=== PATIENT | male | born 1960 | race Caucasian/White ===

== ENCOUNTER 2020-01-19 10:55 | Outpatient (CLI) | payer MEDICAID, SELFPAY ==
--- NOTE | 2020-01-19 11:00 | USCV_ITS ---
Rashard Lovelace Age: 59 Gender: M : 1960 Exam Date: 01/19/2020 11:21 Ordering Phys: Annabelle Ross Technologist: Liz Padilla [place] [facility] [place]: HISTORY: Lower extremity pain and swelling PROCEDURES: Bilateral duplex Venous Insufficiency study of the Deep and Superficial systems was carried out according to normal protocol with the patient in supine positon for deep system and dependent position for the superficial system. Serial compression, augmentation maneuvers, and spectral Doppler flow evaluation were performed. FINDINGS: All deep veins demonstrated compressibility without evidence of intraluminal thrombus or increased echogenicity. Spectral analysis of Doppler signals demonstrates normal response to compression maneuvers indicating patency without obstruction. Reflux determinations were made with the patient in the dependent position, the weight being on the contralateral leg. RIGHT: Reflux is demonstrated in the deep venous system at the level of the CFV and FV. Venous reflux is demonstrated in the RIGHT greater saphenous junction and below the knee with a spectral Doppler display of greater than 500 milliseconds. LEFT: No significant venous reflux in the deep system Mild venous reflux is demonstrated in the small saphenous vein proximally with a spectral Doppler display of greater than 500 milliseconds. CONCLUSIONS 1. No evidence of DVT in the above-mentioned identifiable veins. 2. Significant venous reflux greater than 500 ms was noted at the right saphenofemoral junction and at the below-knee greater saphenous vein segments. The segment of the greater saphenous vein was less than 1 cm deep from the surface. 3. Significant venous reflux of greater than 500 ms was noted at the left proximal small saphenous vein segment. This segment of the vein was found to be less than 1 cm deep from the surface. 4. Significant venous reflux of greater than 1000 ms was noted at the right common femoral and femoral veins. No significant deep venous reflux on the left side 5. The venous dimensions, depth from the surface and the reflux times are as mentioned above Dr Sury Villafana MD [facility] (Electronically Signed) Final Date: 19 January 2020 16:33 S
== END 2020-01-19 10:56 | disposition home or self-care (01) ==
LOC: US 10:57
PROVIDERS: Family Provider Internal Medicine; PCP Internal Medicine; Visit Provider Nurse Practitioner Family
DX: I73.9 Peripheral vascular disease, unspecified (principal); M79.605 Pain in left leg; M79.604 Pain in right leg; M79.89 Other specified soft tissue disorders
CPT/HCPCS: 93970

== ENCOUNTER 2021-01-04 13:21 | Outpatient (CLI) | payer MEDICAID, SELFPAY ==
--- NOTE | 2021-01-04 13:30 | USCV_ITS ---
Rashard Lovelace Age: 60 Gender: M : 1960 Exam Date: 01/04/2021 13:32 Ordering Phys: Annabelle Ross Technologist: Elif Sanz Exam Location: [facility] [place] Indication: HISTORY: PVD PROCEDURES: Bilateral duplex Venous Insufficiency study of the Deep and Superficial systems was carried out according to normal protocol with the patient in supine positon for deep system and dependent position for the superficial system. FINDINGS: There is no evidence of bilateral deep vein thrombosis. No evidence of superficial thrombosis in the bilateral saphenous system. No evidence of reflux was noted in the bilateral deep venous system. No venous reflux noted in the bilateral greater saphenous vein. No venous reflux noted in the bilateral small saphenous vein. CONCLUSIONS No evidence of DVT in the above-mentioned identifiable veins. No significant venous reflux either in the superficial or in the deep veins bilaterally Dr Sury Villafana MD [facility] (Electronically Signed) Final Date: 04 January 2021 20:30 S
== END 2021-01-04 13:22 | disposition home or self-care (01) ==
LOC: US 13:21
PROVIDERS: PCP Internal Medicine; Visit Provider Nurse Practitioner Family
DX: I73.9 Peripheral vascular disease, unspecified (principal)
CPT/HCPCS: 93970

== ENCOUNTER 2021-03-19 07:19 | Outpatient (CLI) | payer MEDICAID, SELFPAY ==
--- NOTE | 2021-03-19 07:25 | ECG_ITS ---
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 Interpretive Statements NAME OF STUDY: LEXISCAN SESTAMIBI STRESS TEST INDICATION: [CAD, ] Procedure: At the baseline, the blood pressure was 154/92mmHg with a heart rate of 84 bpm. The electrocardiogram showed normal sinus rhythm, normal axis with normal ST and T's. The Lexiscan was infused over a period of 20 seconds. A total of 0.4 mg of Lexiscan was infused. The stress phase was continued for a total of 5 minutes. Heart rate was at the end of stress phase was 94 bpm and a blood pressure of 158/88 mmHg. The EKG at the peak infusion revealed since normal sinus rhythm with no significant ST-T wave changes. Sestamibi was injected 20 seconds after the Lexiscan infusion. Blood pressure at the end of recovery phase was 154/88mmHg with a heart rate of 89 bpm. Conclusion: 1. Normal EKG response to Lexiscan infusion 2. No Lexiscan induced chest pain or cardiac arrhythmia. 3. Normal blood pressure and heart rate response. 4. Sestamibi/sestamibi perfusion scan pending; see separate report. Electronically Signed On 04-17-2021 16:48:32 CDT by Washington Ba M.D. [email or web address]/store/[id number]
--- NOTE | 2021-03-19 07:26 | NMCV_ITS ---
NM tiffanie perf SPECT r/s* [id number] Rashard Lovelace Age: 61 Gender: M : 1960 Exam Date: 03/19/2021 08:40 Ordering Phys: Washington Ba M.D ([email or web address]) Technologist: CLOVER Vallecillo Exam Location: [facility] Indications: CAD STRESS TEST [facility] IMAGE PROTOCOL Rest/Stress 1 Lexiscan Day Radiopharmaceutical Dose (mCi) Administration Site Administered by Rest: Tc-99m 10.7 IV CLOVER Shafer Sestamibi Stress:Tc-99m 32.9 IV CLOVER Nielsen Sestamibi Rest: 19-Mar-2021 60 Discovery 630 Stress: 19-Mar-2021 30 Discovery 630 0.4mg Lexiscan. Images obtained in supine and prone position. SPECT RESULTS Technical Quality: Excellent Raw Data Analysis: Normal Image Corrections: No attenuation or motion correction applied Summed Stress Score: 10 Summed Rest Score: 1 Summed Difference Score: 9 PERFUSION FINDINGS There is a large in size, severe in intensity, reversible perfusion defect in the apical lateral, mid lateral and inferolateral blanco.This is consistent with large area of ischemia in the left circumflex artery/RCA. FUNCTIONAL RESULTS (calculated via Gated SPECT) Stress Image LV EF (%): 70 Stress EDV (mL):112 TID: 1.15 Stress ESV (mL):34 FUNCTIONAL FINDINGS: There is normal left ventricular systolic function. IMPRESSIONS 1. Abnormal myocardial perfusion imaging 2. There is a large area of ischemia noted in the apical lateral, mid lateral and inferolateral blanco. 3. LV systolic function is normal Washington Ba MD (Electronically Signed) Final Date: 20 Mar 2021 11:15 S
[2021-03-19 08:01] VITALS: BMI 32.5
[2021-03-19] MEDS: regadenoson 0.4 Mg/5 ml Syringe IVP (09:18)
[2021-03-19 09:36] VITALS: BP 160/86; PULSE 93
== END 2021-03-19 07:20 | disposition home or self-care (01) ==
LOC: RAD 07:23 → CDL 07:33
PROVIDERS: PCP Internal Medicine; Visit Provider Internal Medicine
DX: I25.10 Atherosclerotic heart disease of native coronary artery without angina pectoris (principal); I25.9 Chronic ischemic heart disease, unspecified
CPT/HCPCS: 78452; 93017; A9500; J2785

== ENCOUNTER → 2021-06-18 10:06 | Outpatient (BNVA) | payer MEDICAID, SELFPAY | PROVIDERS: PCP Internal Medicine; Referring Provider Internal Medicine; Visit Provider Internal Medicine | DX: Z01.818 Encounter for other preprocedural examination (principal); R94.39 Abnormal result of other cardiovascular function study; I25.10 Atherosclerotic heart disease of native coronary artery without angina pectoris; I83.893 Varicose veins of bilateral lower extremities with other complications | CPT/HCPCS: 80048; 85025; 85610; 87635 ==

== ENCOUNTER 2021-06-20 08:52 | Day surgery (SDC) | payer MEDICAID, SELFPAY ==
[2021-06-20] VITALS (26 sets, daily range): BP systolic 134–183; BP diastolic 80–103; PULSE 62–86; RESP 14–24; TEMP 36.9; O2SAT 97–100; BMI 34.7
--- NOTE | 2021-06-20 09:04 | XACV_ITS ---
Exam Room: 1 Ht: 175 cm Wt: 107 kg BSA: 2.32 m2 Gender: Male : 1960 Any Known Allergies: Other Exam Priority: Routine Procedure(s): Procedure Description: Diagnostic procedure Procedure Description: PCI procedure Procedure Description: Drug Eluting Coronary Stent Procedure Description: PTCA Procedure Description: Miscellaneous Procedure Description: ACT Procedure Description: Coronary Angiography Diagnostic Cath Status: Elective Diagnostic Findings * Left Anterior Descending has 50% instent restenosis in the prior proximal to mid vessel stent. * Circumflex has mild luminal irregularities. A large OM branch has severe 95% stenosis. * INDICATION: Worsening angina/abnormal stress test. * Mid Right Coronary Artery has severe instent restenosis : significant 80% stenosis, SAUL: 3 flow. * Left Main has no disease. * First Obtuse Marginal Branch Segment: critical 95% stenosis, SAUL: 3 flow. * Coronary angiography shows right dominance. PCI Status: Elective PCI Indication: Other Interventional Findings * Procedure details: We engaged left main artery with a XB 3.5 guide catheter. IV heparin was administered to maintain an ACT above 250 seconds. A 0.014 run-through guidewire was used to cross the stenosis and was placed in distal OM. 2.5 x 12 mm semicompliant balloon was used to predilate the stenosis in the OM branch. This was followed by placement of 2.75x 12 mm resolute Otis drug-eluting stent. At this time final angiogram was performed that showed excellent stent expansion, SAUL-3 flow and no residual stenosis. Guidewire and guide catheter were removed. We then turned our attention to mid RCA in-stent restenosis. JR4 guide catheter was used to engage the RCA. This was followed by placement of a 0.014 run-through guidewire in distal RCA. We decided to dilate in-stent restenosis with 3.0 x 12 mm NC balloon. This improved the flow significantly. Guidewire and guide catheter were removed. Patient left the Mold Designer in a stable condition. * Mid Right Coronary Artery: 80% stenosis treated with a MDT NC EUPHORA RX 3.48T63TX BALLOON. 0% residual stenosis, SAUL: 3 flow. * First Obtuse Marginal Branch Segment: 95% stenosis treated with a AB TREK 2.50X12 RX BALLOON, and MDT R OTIS 2.75X12 PRATIK. 0% residual stenosis, SAUL: 3 flow. Conclusions 1. Severe large OM1 stenosis. Status post revascularization with PRATIK x1.. 2. Severe in-stent restenosis of mid RCA. 3. Mid Right Coronary Artery was treated with a Balloon. 4. First Obtuse Marginal Branch Segment was treated with a Balloon, and Drug Eluting Stent. Recommendations * Aspirin and Plavix for at least 1 year. * High intensity statin therapy. * Outpatient follow-up with cardiology in 4 weeks. Interventional RX Recommendation: PCI w/o planned CABG Diagnostic RX Recommendation: PCI w/o planned CABG Anticoagulation: Heparin Pressures Phase:Rest AO : 145 / 84 ( 110 ) @ 9:01:00 AM 137 / 86 ( 108 ) @ 9:04:00 AM 108 / 55 ( 84 ) @ 9:11:00 AM 150 / 86 ( 113 ) @ 9:25:00 AM 143 / 85 ( 109 ) @ 9:27:00 AM 165 / 90 ( 122 ) @ 9:36:00 AM 179 / 77 ( 115 ) @ 9:39:00 AM 128 / 77 ( 100 ) @ 9:41:00 AM 159 / 87 ( 117 ) @ 9:50:00 AM Clinical Evaluation EBL: 5mL-10mL Procedural Details Procedure Consent Obtained. Pre-Procedure Time Out. Identified patient by full name and date of as verbalized by the patient/guarantor. Does the consent match the physician's order: Yes. Accurate & Complete Informed Consent: Yes. Inpatient/Outpatient History & Physical on Chart: Yes. If H&P is completed, is and addenduem needed: Yes; If yes, is the addendum complete: N/A. Visualize and Verify Site with Patient/Guarantor: N/A. Relevant Radiology Images available: Yes. Pre-op teaching completed and patient verbalized understanding. The risks, benefits, and alternatives of sedation and/or procedure were discussed by physician. The patient agrees to continue. Procedure started. [facility] Clinical Fraility Score: 3: Managing Well. Mold Designer Indications: Suspected CAD. Chest Pain Symptom Assessment: Typical Angina Symptoms. PERRLA. Strong, equal hand wirer maintenance bilaterally. Lungs clear x 5 lobes. A 20 gauge IV was started in the left anticubital using aseptic technique. IV Fluids: 0.9% NaCl at KVO. 0 mL infused prior to quality assurance/r&d lab technician. Pre Procedural Pulses: bilateral dorsalis pedis was 1+. Pre Procedural Pulses: bilateral posterior tibial was 1+. Pre Procedural Pulses: bilateral radial was 3+. Oxygen started at 2liters/min via nasal canula. right groin was prepped with chloroprep then draped in the usual sterile fashion. right radial was prepped with chloroprep then draped in the usual sterile fashion. Physician notified. Vital chart was stopped. Baseline sample Acquired. HR: 78 BPM. Physician arrived. Physician scrubbed in. Immediate Pre-Procedure Time Out. Correct Patient: Yes; Correct Procedure: Yes; Correct Site: Yes; Correct Patient Position: Yes; Correct Supplies: Yes; Dried Flammable Prep: Yes; Blood Products Available: N/A;. Lidocaine 1% infiltrated to the right radial. Arterial access obtained. A 5 mozambican TIG catheter in over wire. Multiple views taken of left coronary artery. Catheter redirected to the RCA. Catheter removed over the exchange wire. A 5 mozambican JR4 catheter in over wire. Multiple views taken of right coronary artery. Catheter removed over the exchange wire. 6 mozambican XB 3.5 guide catheter was inserted over the wire. Inventory is Standard Exchange J-Tip Guidewire .035 260cm. Guide catheter out. 6 mozambican XB 3 guide catheter was inserted over the wire. Runthrough guidewire was advanced through the guide catheter to lesion in the OM. Inflation number : 1 A AB TREK 2.50X12 RX BALLOON was prepped and advanced across the 1st Ob Magdalena , then inflated to 12 SHAMAR for 0:17 seconds. Balloon out over the wire. 2.75x12 Otis inserted and advanced OTW. Stent balloon out over wire. Inflation number: 2 The AB TREK 2.50X12 RX BALLOON was reinflated across the 1st Ob Magdalena, to 12 SHAMAR for 0:18 seconds. Balloon out. Inflation Number : 3 A MDT R OTIS 2.75X12 PRATIK -Lot Number# _[id number] Exp:03/07/2024 was prepped and advanced across the 1st Ob Magdalena. The stent was deployed at 14 SHAMAR for 0:30 seconds. Stent balloon out over wire. Results checked. ACT drawn. Results 217 seconds. Therapeutic limits - pre-heparin administration 90-150 seconds and monitoring heparin during a vascular procedure >250 seconds. Wire out. Guide catheter out. 6 mozambican JR 4 guide catheter was inserted over the wire. Runthrough guidewire was advanced through the guide catheter to lesion in the mid RCA. Inflation number : 1 A MDT NC EUPHORA RX 3.99N97LU BALLOON was prepped and advanced across the Mid RCA , then inflated to 12 SHAMAR for 0:17 seconds. Inflation number: 2 The MDT NC EUPHORA RX 3.23K77PT BALLOON was reinflated across the Mid RCA, to 12 SHAMAR for 0:17 seconds. Balloon out. Results checked. Wire out. Guide catheter out. TR band placed. Hemostasis obtained. A TR Band was successful obtaining hemostatsis at the Right Radial artery insertion site. Post Procedure: Pulses reassessed and unchanged. PERRLA. Strong, equal hand wirer maintenance bilaterally. No VTE prophylaxis required. Vital chart was stopped. Medication's Wasted: Nitro = 49.4 mg. Medication's Wasted: Lidocaine 1% = 17 mL. Total IV fluids: 94 mL. Contrast type used: Omnipaque 300 mgI/mL, 500 mL bottle. PCI Indication: CAD (without ischemic symptoms). Post-op diagnosis: CAD. Complications: None. Estimated blood loss: 5mL-10mL. Procedure completed. Patient transferred by wheelchair to CPRU. Access Site Site: Right Radial artery Sheath Size: 6 Fr Hemostasis Method: TR Band Hemostasis Success: Successful Procedure Medications Start: 9:53 AM Stop: 9:53 AM Medication: Versed Amount: 1 mg Route: I.V. Start: 9:53 AM Stop: 9:53 AM Medication: Fentanyl Amount: 50 mcg Start: 9:55 AM Stop: 9:55 AM Medication: Versed Amount: 1 mg Route: I.V. Start: 9:57 AM Stop: 9:57 AM Medication: Fentanyl Amount: 50 mcg Start: 9:59 AM Stop: 9:59 AM Medication: Nitrogylcerin Amount: 200 mcg Route: I.A. Start: 10:01 AM Stop: 10:01 AM Medication: Heparin Amount: 5000 units Route: I.V. Start: 10:11 AM Stop: 10:11 AM Medication: Heparin Amount: 5000 units Route: I.V. Start: 10:27 AM Stop: 10:27 AM Medication: Versed 1 mg and Fentanyl 25 mcg Amount: 1 Route: I.V. Start: 10:45 AM Stop: 10:45 AM Medication: Heparin Amount: 3000 units Route: I.V. Start: 10:50 AM Stop: 10:50 AM Medication: Versed Amount: 1 mg Route: I.V. Start: 10:50 AM Stop: 10:50 AM Medication: Nitrogylcerin Amount: 200 mcg Route: I.A. Start: 10:55 AM Stop: 10:55 AM Medication: Fentanyl Amount: 25 mcg Route: I.V. Start: 10:57 AM Stop: 10:57 AM Medication: Plavix Amount: 600 mg Route: P.O. Start: 10:57 AM Stop: 10:57 AM Medication: Aspirin Amount: 325 mg Route: P.O. I, the attending physician, have reviewed and verified all procedure medications. Yes, all medications given per verbal order History/Risk Factors Hypertension: Yes Dyslipidemia: Yes Peripheral Arterial Disease (PAD): Yes Myocardial Infarction (TX): No Obesity: No Renal Disease: No Prior Interventions PCI: Yes CABG: No Valve Surgery: No Date of PCI: 05/16/2011 Report Signatures Finalized by Washington Ba MD on 07/04/2021 05:09 PM
[2021-06-20] MEDS: diphenhydrAMINE 50 mg Capsule PO (09:28)
--- NOTE | 2021-06-20 09:47 | P.HP_ITS ---
Same Day Surgery H&P Indication for Procedure/HPI DATE OF PROCEDURE: June 20, 2021 CHIEF COMPLAINT/INDICATIONFOR SURGICAL PROCEDURE: Worsening angina/abnormal stress test PREOP DIAGNOSIS: Worsening angina/abnormal stress test PLANNED PROCEDRUE: Operation Date: 06/20/21 10:00 Proposed Procedures p left Cardiac Catheterization 96218 r94.39(Left) - Washington Ba M.D Possible percutaneous coronary intervention 60-year-old man with past medical history of coronary artery disease with multiple stents to the LAD and RCA, hypertension, dyslipidemia, chronic pain specially both knees who has been having worsening chest pain for last several months. Nuclear stress test was abnormal with ischemia noted. ROS CONSTITUTIONAL: No fever chills weight loss or gain or night sweats. [] HEENT: Normocephalic, atraumatic.[] RESPIRATORY: No cough, sputum, hemoptysis or wheezing.[] CARDIOVASCULAR: On and off chest pain and shortness of breath,No PND, orthopnea, lower extremity edema, presyncope or syncope. [] GI: no nausea vomiting diarrhea. [] MEDICAL LABORATORY ASSISTANT: No numbness, tingling, weakness or loss of function in any part of the body. [] MUSCULOSKELETAL: No knee or joint pain or rashes. [] Medications/Allergies* Home Medications Medication Instructions Recorded Confirmed Type nitroglycerin 0.4 mg sublingual 0.4 mg SUBLINGUAL Q5M PRN 12/05/19 06/19/21 History tablet temazepam 30 mg PO .AT BEDTIME 06/19/21 06/20/21 History Allergies/Adverse Reactions Allergy/AdvReac Type Severity Reaction Status Date / Time Qhnkicy-Lha-Kde Reductase Allergy Unknown Verified 06/11/21 15:19 Inhibitor Current Medications: Generic Name Dose Route Start Last Admin Trade Name Freq PRN Reason Stop Dose Admin Sodium Chloride 1,000 mls @ 50 mls/hr 06/20/21 09:04 06/20/21 09:28 Sodium Chloride 0.9% IV 06/21/21 05:03 Not Given .Q20H ONE Pertinent History/Comorbid Conditions* Medical History (Updated 03/12/20 @ 15:01 by Jhon Padron MD) Beta-dominic intolerance Bilateral tennis elbow Chronic pain syndrome Peripheral vascular disease Post-traumatic osteoarthritis of knees, bilateral Presence of stent in LAD coronary artery 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 Stent to mid right SFA in 2016 Varicose veins of bilateral lower extremities with other complications Surgical History (Updated 01/11/20 @ 13:18 by MARIBETH Desai) S/P right coronary artery (RCA) stent placement Family History (Updated 01/11/20 @ 13:07 by Ritu Darling RN) Diabetes Brother Sister Mother CAD (coronary artery disease) Father Clotting disorder Sister Dementia Sister Hyperlipidemia Father Brother Cancer Father Brother Hypertension Father Brother Sister Mother Denies family history of Psychiatric illness Chronic kidney disease (CKD) Suicide Anesthesia complication Bleeding disorder Family history of premature coronary artery disease Lung disease Stroke Social History Smoking and tobacco status: current every day smoker smokeless tobacco Smokeless tobacco user: chewing tobacco Second hand smoke exposure: No Alcohol intake: never Pertinent Exam Findings alert, oriented x 3, clear to auscultation bilaterally and regular rate & rhythm Conscious Sedation Assessment PATIENT ASSESSED PRIOR TO SEDATION, WITH NO CHANGE NOTED: Yes AIRWAY EVAL/ANESTHESIA PLAN: normal airway, see other exam findings, ASA III, Monitored Anesthesia, Local Anesthesia, Risks, benefits & alternatives of sedation and/or procedure discussed and Patient agrees to continue as planned Recommendations Surgery/Procedure today (Left heart cath with possible percutaneous coronary intervention) Coding Level of Care Code Acute Yield Clerk for Emy Ramírez
[2021-06-20] MEDS: aspirin 325 mg Tablet PO (11:22)
--- NOTE | 2021-06-20 11:23 | PC.NURSE ---
recovery received pt from prestressed concrete laborer [facility]. pt tired but able to rouse and transfer to the bed. pt able to follow direction. nurse will continue to educate pt with restrictions to right wrist. tr band in place no bleeding or bruising noted. distal pulse palpable. pt placed on vitals monitor and will monitor per protocol.
--- NOTE | 2021-06-20 15:13 | PC.NURSE ---
TR Band deflation complete. No swelling or bleeding noted.
--- NOTE | 2021-06-20 16:11 | ECG_ITS ---
[facility] Test Date: 2021-06-20 Pat Name: Rashard Lovelace Department: Room: Gender: Male Etl Analyst Developer: : 1960 Requested By: Washington Ba Order Number: [id number] Reading MD: ELTON VITALE Measurements Intervals [place] Rate: 81 P: 65 RI: 151 QRS: 54 QRSD: 87 T: 68 QT: 370 QTc: 430 Interpretive Statements SINUS RHYTHM Compared to ECG 03/05/2016 15:21:38 No significant changes Electronically Signed On 06-20-2021 21:22:01 CDT by ELTON VITALE [id number]
--- NOTE | 2021-06-20 16:58 | PC.NURSE ---
The patient ambulated himself around the department. No complaints or problems noted.
--- NOTE | 2021-06-20 17:13 | PC.NURSE ---
Pharmacy delivered the patient's Plavix prescription.
--- NOTE | 2021-06-20 17:19 | SUR.PHASEII ---
IV fluids discontinued. Total NS infused 554 ml.
--- NOTE | 2021-06-20 21:30 | P.DS_ITS ---
Discharge Providers Date of Admission: 06/20/2021 Date of Discharge: June 20, 2021 Attending Provider at Admission: Washington Ba MD Attending Provider at Discharge: Washington Ba M.D Primary Care Provider: Daniel Narayanan MD Reason for Visit Reason for Visit: [facility] Brief History: 60-year-old man with past medical history of coronary artery disease with multiple stents to the LAD and RCA, hypertension, dyslipidemia, chronic pain specially both knees who has been having worsening chest pain for last several months. Nuclear stress test was abnormal for which he was scheduled to undergo coronary angiogram Hospital Course Hospital Course 60-year-old man with past medical history of coronary artery disease with multiple stents to the LAD and RCA, hypertension, dyslipidemia, chronic pain specially both knees who has been having worsening chest pain for last several months. Nuclear stress test was abnormal for which he was scheduled to undergo coronary angiogram . Coronary angiogram demonstrated severe 95% stenosis of a large OM branch. He also had significant in-stent restenosis of RCA. He u nderwent PCI with PRATIK times one of the OM and balloon angioplasty of the RCA in- stent restenosis. Patient was discharged in a stable condition. Physical Exam Narrative: EXAM NARRATIVE: GENERAL: Patient is alert, awake and oriented x3. [] NECK: No jugular vein distension. [] HEENT: No cyanosis. No icterus. No pallor. [] HEART: Regular S1 and S2. No murmur, rub or gallop. [] LUNGS: Clear to auscultate bilaterally. [] ABDOMEN: Soft, nontender and nondistended. Positive bowel sounds. No guarding, rebound or tenderness. [] CENTRAL NERVOUS SYSTEM: Grossly nonfocal. [] EXTREMITIES: Lower extremities with no edema bilaterally. Pulses palpable in the lower extremities, both dorsalis pedis and posterior tibial. [] Discharge Data Data Completed and Pending: Pending at discharge Category Date Time Status CONDENSER CLEANER request for service Routin e Exams 06/20/21 09:04 Taken Vitals: Last Vital Signs Temp 98.4 F 06/20/21 09:02 Pulse 70 06/20/21 17:30 Resp 20 H 06/20/21 17:30 BP 140/80 06/20/21 17:30 Pulse Ox 98 06/20/21 17:30 Discharge Plan Discharge Patient Disposition: Home Condition: Stable Prescriptions: New Plavix 75 mg tablet 75 mg PO DAILY Qty: 90 RF: 3 Continued morphine [MS Contin] 100 mg tablet extended release 100 mg PO Q12H 30 Days Qty: 60 RF: 0 nitroglycerin [Nitrostat] 0.4 mg tablet, sublingual 0.4 mg SUBLINGUAL Q5M PRN (Reason: Pain) RF: 0 aspirin [Adult Aspirin Regimen] 81 mg tablet,delayed release (DR/EC) 81 mg PO DAILY Qty: 90 RF: 3 Movantik 25 mg tablet 25 mg PO QAM Qty: 30 RF: 6 lisinopril 40 mg tablet 40 mg PO QDAY Qty: 30 RF: 3 amlodipine 10 mg tablet 10 mg PO QDAY Qty: 30 RF: 6 ezetimibe 10 mg tablet 10 mg PO QDAY Qty: 30 RF: 3 No Action temazepam 30 mg capsule 30 mg PO .AT BEDTIME Qty: 30 RF: 3 Discharge Orders: Discharge Order (Routine); Ordered 06/20/21 Ordered By: Washington Ba Referrals: Washington Ba M.D [Physician] - 07/17/21 3:15 pm (Please arrive 15 minutes early.) Annabelle Ross FNP [Nurse Practitioner] - 06/26/21 8:30 am (Please arrive 15 minutes early.) Discharge Diet: Cardiac Discharge Activity: Increase activity as tolerated Patient Instructions: Left Heart Catheterization (DC), Coronary Angioplasty (DC) Activity Restrictions/Additional Instructions: Please do not lift more than 5 pounds of weight for the next 5 days Discharge Attestations Time Spent in Discharge Care*: less than 30 min Quality Metrics Clinical Quality Measures During this hospital stay, did patient experience: None Coding Level of Care Code Acute Chg FW DC note
== END 2021-06-20 17:30 | disposition home or self-care (01) ==
PROVIDERS: PCP Internal Medicine; Visit Provider Internal Medicine
DX: I25.10 Atherosclerotic heart disease of native coronary artery without angina pectoris (principal); R94.39 Abnormal result of other cardiovascular function study; Z95.5 Presence of coronary angioplasty implant and graft; Z82.49 Family history of ischemic heart disease and other diseases of the circulatory system; Z83.3 Family history of diabetes mellitus; F17.220 Nicotine dependence, chewing tobacco, uncomplicated
CPT/HCPCS: 36415; 85347; 92921; 93005; 93454; C1725; C1769; C1874; C1887; C1894; C9600; J1644; J2250; J3010; J3490; J7030; Q0163; Q9967

== ENCOUNTER 2021-10-10 12:26 | Outpatient (CLI) | payer MEDICAID, SELFPAY ==
--- NOTE | 2021-10-10 12:45 | USCV_ITS ---
Greyhien Rashard Age: 61 Gender: M : 1960 Exam Date: 10/10/2021 13:02 Ordering Phys: Washington Ba M.D ([email or web address]) Technologist: Exam Location: [facility] [place] Indication: PAD HX OF STENT IN RT LEG Risk Factors: None Previous Vascular Surgery: STENTS RIGHT LEFT BP: 140.0 / 80.00 BP: 140.0/ 80.00 0 0 Waveform Velocity (cm/s) Velocity (cm/s) Waveform Biphasic 88.3 Iliac Prox 84.2 Biphasic Biphasic 89.5 Iliac Mid 87.1 Monophasic Biphasic 93.9 Iliac Distal 64.3 Monophasic Biphasic 96.2 NEONATAL SPECIALIST 67.2 Monophasic Biphasic 70.5 SFA Prox 47.3 Monophasic Biphasic SFA Mid Monophasic 66.0 54.4 Biphasic 69.3 SFA Dist 57.7 Monophasic Monophasic 47.3 POP 29.5 Monophasic Monophasic 58.7 OIL RAG WASHER 52.3 Monophasic Monophasic 54.0 DPA 37.5 Monophasic 0.8 MORRIS 0.7 FINDINGS Normal resting ABIs bilaterally of 0.8 on the right side and 0.7 on the left side CONCLUSIONS 1. Features of mild peripheral artery disease on the right side and mild to moderate peripheral artery disease on the left side. 2. Mild to moderate diffuse plaques were noted in the iliac and femoral arteries bilaterally Dr Sury Villafana MD [facility] (Electronically Signed) Final Date: 11 October 2021 13:47 S
== END 2021-10-10 12:27 | disposition home or self-care (01) ==
LOC: RAD 12:28
PROVIDERS: PCP Internal Medicine; Visit Provider Internal Medicine
DX: M79.606 Pain in leg, unspecified (principal)
CPT/HCPCS: 93925

== ENCOUNTER → 2022-07-11 10:57 | Outpatient (BNVA) | payer MEDICAID, SELFPAY | PROVIDERS: PCP Internal Medicine; Visit Provider Internal Medicine Cardiovascular Disease | DX: I83.893 Varicose veins of bilateral lower extremities with other complications (principal); Z95.5 Presence of coronary angioplasty implant and graft; Z78.9 Other specified health status; I25.10 Atherosclerotic heart disease of native coronary artery without angina pectoris; E78.5 Hyperlipidemia, unspecified; I10 Essential (primary) hypertension; I73.9 Peripheral vascular disease, unspecified; G89.4 Chronic pain syndrome; Z87.891 Personal history of nicotine dependence | CPT/HCPCS: 99213 ==

== ENCOUNTER → 2022-12-10 11:05 | Outpatient (BNVA) | payer MEDICAID, SELFPAY | PROVIDERS: PCP Internal Medicine; Visit Provider Nurse Practitioner Family | DX: I25.10 Atherosclerotic heart disease of native coronary artery without angina pectoris (principal); I73.9 Peripheral vascular disease, unspecified; I10 Essential (primary) hypertension; Z95.5 Presence of coronary angioplasty implant and graft; Z87.891 Personal history of nicotine dependence | CPT/HCPCS: 99214 ==

== ENCOUNTER 2023-01-06 10:34 | Outpatient (CLI) | payer MEDICAID, SELFPAY ==
--- NOTE | 2023-01-06 10:15 | USCV_ITS ---
Rashard Lovelace Age: 62 Gender: M : 1960 Exam Date: 01/06/2023 10:54 Ordering Phys: Annabelle Ross Technologist: CT Exam Location: [facility] [place] Indication: chest pain BP: 140 / 82 HR: 73 Rhythm: Sinus Technical Quality: Adequate MEASUREMENTS (Male / Female) Normal Values 2D ECHO LVOT Diameter 2.0 cm LV Ejection Fraction MOD 2C 64.9 % LV Ejection Fraction 2C AL 65.2 % LA Diameter 3.4 cm LA Width 3.0 cm LA Height 3.8 cm RA Width 3.4 cm RA Height 4.1 cm Aorta at Sinotubular Diameter 2.6 cm IVC Diameter 1.5 cm M-MODE Aortic Annulus Diameter 3.0 cm LA Ao Ratio MM 1.1 MV E Point Septal Separation 0.3 cm DOPPLER AV Peak Velocity 130.0 cm/s LVOT Peak Velocity 138.0 cm/s AV Area Cont Eq vti 3.0 cm squared AV Area Cont Eq pk 3.4 cm squared MV Peak Velocity 92.0 cm/s MV Area PHT 2.8 cm squared Mitral E to A Ratio 0.7 MV E' Velocity 37.5 cm/s Mitral E to MV E' Ratio 6.8 Mitral E to LV E' Lateral Ratio 5.8 Mitral E to LV E' Septal Ratio 8.2 TR Peak Velocity 148.5 cm/s TR Peak Gradient 8.8 mmHg TR Mean Velocity 122.6 cm/s TR Mean Gradient 6.2 mmHg TR Velocity Time Integral 38.8 cm TV Peak E Velocity 45.0 cm/s Right Atrial Pressure 3.0 mmHg Pulmonary Artery Systolic Pressu 11.8 mmHg PV Peak Velocity 137.0 cm/s RV Acceleration Time 0.1 s RV Ejection Time 0.3 s RV AcT/ET 0.4 FINDINGS Left Ventricle Left ventricle is normal in size. LV systolic function is normal with EF of 55 to 60%. No regional wall motion abnormalities are seen. Grade 1 diastolic dysfunction. Right Ventricle Normal in size and function Right Atrium Normal in size Left Atrium Normal in size Mitral Valve Structurally normal mitral valve. Mild mitral regurgitation. Aortic Valve Structurally normal aortic valve. No significant stenosis or regurgitation. Tricuspid Valve Mild tricuspid regurgitation. Pulmonary artery systolic pressure is normal. Pulmonic Valve Not well visualized. Trace pulmonic regurgitation. Pericardium Normal Aorta Normal in size IVC Appears to be normal CONCLUSIONS LV systolic function is normal with EF of 55-60% Grade 1 diastolic dysfunction Mild mitral regurgitation Mild tricuspid regurgitation Trace pulmonic regurgitation. No comparison studies are available Washington Ba MD (Electronically Signed) Final Date: 10 January 2023 20:11 S
== END 2023-01-06 10:35 | disposition home or self-care (01) ==
PROVIDERS: PCP Internal Medicine; Visit Provider Nurse Practitioner Family
DX: I08.3 Combined rheumatic disorders of mitral, aortic and tricuspid valves (principal); I25.10 Atherosclerotic heart disease of native coronary artery without angina pectoris; R53.83 Other fatigue; Z95.5 Presence of coronary angioplasty implant and graft
CPT/HCPCS: 93306

== ENCOUNTER 2023-01-15 11:57 | Outpatient (CLI) | payer MEDICARE, MEDICAID, SELFPAY ==
--- NOTE | 2023-01-15 12:00 | CT_ITS ---
WS: [id number] CT ANGIOGRAPHY OF THE ABDOMINAL AORTA WITH RUNOFF TO THE ANKLES HISTORY: claudication TECHNIQUE: Arterial injection is performed during imaging to evaluate the aorta and runoff vessels to the ankles. MIP and volume rendering imaging has also been performed. All images are reviewed. All C T scans at [facility] use at least one of these dose optimization techniques: automated exposu re control; mA and/or kV adjustment per patient size (includes targeted exams where dose is matched t o clinical indication); or iterative reconstruction. Contrast: Omnipaque 350; 100 mL IV. DLP: 801.40 mGy.cm COMPARISON: No similar studies. Lung bases are clear. Normal size heart. Small hiatal hernia. Abdominal aorta: Mild atherosclerotic plaque. No aneurysm or high-grade stenosis. Celiac axis and SMA are patent. Normal renal arteries. CAMILA is patent. RIGHT lower extremity arterial system: Scattered plaque in the common, internal and external iliac ar teries. 50% stenosis involving the distal external iliac artery. Deep profunda and SFA remain well-op acified. Continued scattered plaque throughout the SFA. There is a short stent in the mid SFA. The amanda men is opacified. Distal SFA through Madan's canal is patent with no high-grade stenosis. Anterior, posterior tibial and peroneal arteries are opacified to the ankle. Very small caliber peroneal artery . LEFT lower extremity arterial system: Scattered plaque with no high-grade stenosis or occlusion commo n internal iliac proximal LEFT SFA stenosis 70%. .Internal and external iliac arteries are patent. 70% stenosis proximal LEFT SFA. Deep profunda is in tact. Additional very high-grade stenosis greater than 70% with calcification in the mid to distal SF A. There may be a complete occlusion. Reconstitution proximal to Madan's canal. Patent popliteal art phil. Very small caliber anterior tibial artery. Diminutive anterior tibial artery may be occluded dis tally. The peroneal and posterior tibial arteries are barely opacified. Mildly distended gallbladder. Early arterial enhancement abdomen, spleen, pancreas, adrenals and kidn eys demonstrates no acute abnormality. No renal obstruction. No GI tract obstruction. No adenopathy o r ascites. Normal appendix. Bilateral ACL repairs. CT/CT angio abd aorta runof [id number] IMPRESSION: 1. No abdominal aortic aneurysm. 2. 50% stenosis distal RIGHT external iliac artery. 3. Short arterial stent in the mid RIGHT SFA is patent. 4. Small caliber RIGHT peroneal artery to the ankle. 5. High-grade stenosis versus complete occlusion mid to distal LEFT SFA. 6. Very small caliber LEFT anterior tibial artery with limited runoff to the a nkle.
[2023-01-15] MEDS: iohexol 350 mg/mL 500 mL Btl (per mL) IV (12:14)
[2023-01-15 12:37] LABS: Blood Urea Nitrogen 12 mg/dL (8-23); Glomerular Filtration Rate 55.6 mL/min (90-130)
== END 2023-01-15 11:58 | disposition home or self-care (01) ==
LOC: RAD 11:59
PROVIDERS: PCP Internal Medicine; Visit Provider Nurse Practitioner Family
DX: I73.9 Peripheral vascular disease, unspecified (principal); I70.8 Atherosclerosis of other arteries; Z95.820 Peripheral vascular angioplasty status with implants and grafts
CPT/HCPCS: 75635; 82565; 84520; Q9967

== ENCOUNTER 2023-02-05 09:13 | Observation (INO) | payer MEDICARE, MEDICAID, SELFPAY ==
[2023-02-05] VITALS (64 sets, daily range): BP systolic 124–156; BP diastolic 81–108; PULSE 59–90; RESP 10–29; TEMP 36.7; O2SAT 82–100; BMI 34.5
--- NOTE | 2023-02-05 06:00 | XACV_ITS ---
Ht: 175 cm Wt: 106 kg BSA: 2.31 m2 Any Known Allergies: Other Gender: Male : 1960 Exam Type: Invasive Peripheral Vascular Procedure(s): Procedure Description: Peripheral Cath Diagnostic Procedure Procedure Description: Abdominal aortic angiography Procedure Description: Lower extremities' angiography Procedure Description: Peripheral vascular Intervention Procedure Description: PV Balloon Procedure Description: PV Atherectomy Exam Priority: Routine Abdominal Diagnostic Findings Distal abdominal aorta: Patent. Lower Extremity Diagnostic Findings Indication: Severe lifestyle limiting claudication. Left lower extremity findings: Left common iliac artery: Patent. Left external iliac artery: Patent. Left common femoral artery: Patent. Left SFA: In mid segment has severe 90% stenosis. It is heavily calcified vessel. Left popliteal artery: Patent. Left anterior tibial artery: Occluded. Left TP segment: Patent. Left posterior tibial artery: Patent. Left peroneal artery: Patent.. Right lower extremity findings: Right common iliac artery: Patent. Right external iliac artery: Patent. Right common femoral artery: Patent. Right SFA: Has moderate to severe in-stent restenosis with 60% stenosis. Right popliteal artery: Patent Right anterior tibial artery: Patent Right TP segment: Patent. Right posterior tibial artery: Patent. Right peroneal artery: Patent.. Left Mid-longitudinal Superficial Femoral Artery: 90% stenosis. Lower Extremity Interventional Findings Procedure detail: Short 6 Lao sheath was switched to 45 cm sheath that was placed up and over into left external iliac artery. Using seeker support catheter and Glidewire we crossed severe stenosis of mid SFA. Through seeker catheter, we switched to a Glidewire to Viper wire. Multiple runs of orbital arthrectomy were performed. This was followed by balloon angioplasty with 6.0 x 100 mm drug-coated balloon. In the midsegment there was still residual stenosis. We used a 7.0 x 40 mm balloon for balloon angioplasty. At this time final angiogram was performed that showed excellent vessel expansion and brisk flow. Long sheath was switched back to short sheath and patient left the Underwear Trimmer in a stable condition. Left Mid-longitudinal Superficial Femoral Artery: 90% stenosis treated with 6.0x100 Lutonix DCB and AB ARMADA 35 OTW [id number]. Conclusions Severe mid left SFA stenosis status post revascularization with orbital arthrectomy and balloon angioplasty. Left Mid-longitudinal Superficial Femoral Artery was treated with two Balloon. Recommendations Aggressive risk factor modification. Dual antiplatelet therapy with aspirin and Plavix for at least 3 to 6 months. Outpatient cardiology follow up in 4 weeks. Hemodynamic Data Phase:Rest AO : 156.0 / 71.0 ( 100.0 ) @ 8:41:00 AM 133.0 / 65.0 ( 91.0 ) @ 8:49:00 AM 129.0 / 38.0 ( 73.0 ) @ 9:08:00 AM 169.0 / 78.0 ( 116.0 ) @ 9:21:00 AM Access Site Site: Right Femoral artery Sheath Size: 6 Fr Hemost... Method: Suture Hemost... Success: Successful Procedure Details Findings Procedure Consent Obtained. Admit Source: Out Patient. Pre-Procedure Time Out. Identified patient by full name and date of as verbalized by the patient/guarantor. Does the consent match the physician's order: Yes. Accurate & Complete Informed Consent: Yes. Inpatient/Outpatient History & Physical on Chart: Yes. If H&P is completed, is and addenduem needed: No; If yes, is the addendum complete: N/A. Visualize and Verify Site with Patient/Guarantor: N/A. Relevant Radiology Images available: Yes. The risks, benefits, and alternatives of sedation and/or procedure were discussed by physician. The patient agrees to continue. Procedure started. Correct patient, site and procedure confirmed by cath team. PERRLA. Strong, equal hand machine shop worker bilaterally. Lungs clear x 5 lobes. Current diagnosis: Abnormal CTA. IV Site on Arrival: 20 gauge in the right anticubital. IV Fluids: 0.9% NaCl at KVO. 250 mL infused prior to labor arbitrator hearing office. Pre Procedural Pulses: bilateral dorsalis pedis was Doppled. Pre Procedural Pulses: left dorsalis pedis was 2+. Pre Procedural Pulses: right posterior tibial was 1+. Oxygen started at 2liters/min via nasal canula. bilateral groins was prepped with chloroprep then draped in the usual sterile fashion. Physician notified. Baseline sample Acquired. HR: 77 BPM. Physician arrived. Physician scrubbed in. Time out performed with cath team. Lidocaine 1% infiltrated to the right groin. Arterial access obtained with micropuncture set. A 5FrFr UF catheter in over wire. Abdominal aortogram performed in AP @ 10 mL/sec for a total of 30 mL. Glidewire inserted. Catheter removed over the glide wire. Exchanged short sheath for 45 cm flexer. Seeker catheter inserted over the wire. Glidewire removed. DSA performed below the knee. Viperwire inserted. Seeker removed over the viper wire. Side port of sheath attached to Normal Saline flush at KVO to maintain patency. Athrectomy of left SFA performed. Cathryn removed over viper wire. Seeker catheter inserted over the viperwire. Viperwire removed. Balloon inserted over the wire to the superficial femoral. Inflation number : 1 A 6.0x100 Lutonix DCB was prepped and advanced across the Mid Superficial Femoral, Left , then inflated to 8 SHAMAR for 2:00 seconds. Balloon out. Results checked. Balloon and wire inserted to the superficial femoral. Inflation number : 2 A AB ARMADA 35 OTW [id number] was prepped and advanced across the Mid Superficial Femoral, Left , then inflated to 6 SHAMAR for 1:01 seconds. Inflation number: 3 The AB ARMADA 35 OTW [id number] was reinflated across the Mid Superficial Femoral, Left, to 6 SHAMAR for 0:59 seconds. Balloon out. Results checked. Long sheath exchanged for 6Fr short sheath. Sheath injected in Right common femoral artery and runoff performed. Blood drawn for aPTT. Sent to lab to perform. Sheath(s) sutured into position with 2-0 silk and sterile 4x4's and Op-site applied over the site. No oozing or signs and symptoms of hematoma noted. A Suture was successful obtaining hemostatsis at the Right Femoral artery insertion site. Arterial sheath flushed and connected to tranducer and pressure bag with heparinized saline. Post Procedure: Pulses reassessed and unchanged. PERRLA. Strong, equal hand machine shop worker bilaterally. No VTE prophylaxis required. Medication's Wasted: Nitro = 49 mg. Medication's Wasted: Heparin = 4000 units. Total IV fluids: 91 mL. Post-op diagnosis: severe left SFA stenosis. post athrectomy and balloon angioplasty. Complications: none. Estimated blood loss: 5mL-10mL. Responsiveness - Normal response to verbal stimuli; alert and oriented, PERRLA. Airway - Unaffected, no intervention required; spontaneous ventilation. Circulation: W/N/L, pulses unchanged. Nausea/Vomiting: No. Procedure completed. Patient transferred by bed to ICU. Vital chart was stopped. Procedure Medications Start: 7:32 AM Stop: 7:32 AM Medication: Versed Amount: 1 mg Route: I.V. Start: 7:32 AM Stop: 7:32 AM Medication: Fentanyl Amount: 50 mcg Route: I.V. Start: 7:36 AM Stop: 7:36 AM Medication: Versed Amount: 1 mg Route: I.V. Start: 7:58 AM Stop: 7:58 AM Medication: Heparin Amount: 6000 units Route: I.V. Start: 7:59 AM Stop: 7:59 AM Medication: Versed Amount: 1 mg Route: I.V. Start: 8:00 AM Stop: 8:00 AM Medication: Fentanyl Amount: 50 mcg Route: I.V. Start: 8:09 AM Stop: 8:09 AM Medication: Heparin Amount: 1000 units Route: I.V. Start: 8:17 AM Stop: 8:17 AM Medication: Versed Amount: 1 mg Route: I.V. Start: 8:25 AM Stop: 8:25 AM Medication: Plavix Amount: 300 mg Route: P.O. I, the attending physician, have reviewed and verified all procedure medications. Yes, all medications given per verbal order History/Risk Factors Hypertension: Yes Dyslipidemia: Yes Peripheral Arterial Disease (PAD): Yes Obesity: No Tobacco Use: Former Prior Interventions PCI: Yes CABG: No Valve Surgery: No Report Signatures Finalized by Washington Ba MD on 02/08/2023 10:13 AM
[2023-02-05] MEDS: diphenhydrAMINE 50 mg Capsule PO (06:15)
[2023-02-05 06:28] LABS: Basophils # 0.1 10^3/uL (0.0-0.1); Basophils % 1.2 %; Eosinophils # 0.2 10^3/uL (0.0-0.8); Eosinophils % 3.6 %; Hematocrit 47.4 % (42.0-52.0); Hemoglobin 15.8 g/dL (11.7-16.6); Lymphocytes # 1.8 10^3/uL (0.8-4.8); Lymphocytes % 27.3 %; Mean Corpuscular HGB Conc 33.3 g/dL (30.0-36.0); Mean Corpuscular Hemoglobin 29.4 pg (28.0-34.0); Mean Corpuscular Volume 88.1 fl (80-94); Mean Platelet Volume 10.3 fL (7.4-10.4); Monocytes # 0.4 10^3/uL (0.2-0.9); Monocytes % 6.9 %; Neutrophils # 3.89 10^3/uL (1.8-7.7); Neutrophils % 60.7 %; Nucleated Red Blood Cells % 0 %; Platelet Count 193 10^3/cmm (130-400); Red Blood Count 5.38 10^6/uL (4.1-5.3); Red Cell Distribution Width 13.2 % (12.1-15.1); White Blood Count 6.4 10^3/uL (4.0-10.0)
[2023-02-05 06:39] LABS: Anion Gap 12.9 (5-19); Blood Urea Nitrogen 13 mg/dL (8-23); Calcium 8.7 mg/dL (8.5-10.5); Carbon Dioxide 24 mmol/L (22-29); Chloride 101 mmol/L (98-107); Glomerular Filtration Rate 55.4 mL/min (90-130); Glucose 94 mg/dL (65-115); Osmolality Calculated 278 mOsm/kg (285-295); Potassium 3.9 mmol/L (3.5-5.1); Sodium 134 mmol/L (136-145)
--- NOTE | 2023-02-05 06:47 | PC.NURSE ---
Dr. Ba notified of creatinine of 1.3. Telephone orders received to give 250ml NS bolus and then resume NS at 100ml/hr.
--- NOTE | 2023-02-05 07:22 | W.PM.OPSFHP ---
Same Day Surgery H&P Indication for Procedure/HPI DATE OF PROCEDURE: February 05, 2023 CHIEF COMPLAINT/INDICATIONFOR SURGICAL PROCEDURE: Severe lifestyle limiting claudication PREOP DIAGNOSIS: Severe lifestyle limiting claudication PLANNED PROCEDURE: Operation Date: 02/05/23 07:00 Proposed Procedures p Peripheral Angiogram 90283,R93.89,I73.9(Not Applicable) - Washington Ba M.D Possible percutaneous coronary intervention 63-year-old man with past medical history of CAD, PAD, hypertension who has been having severe bilateral claudication symptoms. He underwent CTA that showed total occlusion of the left SFA. Plan is for peripheral angiogram with possible department as intervention. Medications/Allergies* Allergies/Adverse Reactions Allergy/AdvReac Type Severity Reaction Status Date / Time [id number] Reductase Allergy Unknown Verified 12/10/22 11:20 Inhibitor [Xkhymnc-Vjl-Tyk Reductase Inhibitor] Current Medications: Generic Name Dose Route Start Last Admin Trade Name Freq PRN Reason Stop Dose Admin Sodium Chloride 1,000 mls @ 50 mls/hr 02/05/23 06:00 02/05/23 06:30 Sodium Chloride 0.9% IV 02/06/23 01:59 Not Given .Q20H ONE Pertinent History/Comorbid Conditions* Medical History (Updated 03/12/20 @ 15:01 by Jhon Padron MD) Beta-dominic intolerance Bilateral tennis elbow Chronic pain syndrome Peripheral vascular disease Post-traumatic osteoarthritis of knees, bilateral Presence of stent in LAD coronary artery 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 Stent to mid right SFA in 2016 Varicose veins of bilateral lower extremities with other complications Surgical History (Updated 01/11/20 @ 13:18 by MARIBETH Desai) S/P right coronary artery (RCA) stent placement Family History (Updated 01/11/20 @ 13:07 by Ritu Darling RN) Diabetes Brother Sister Mother CAD (coronary artery disease) Father Clotting disorder Sister Dementia Sister Hyperlipidemia Father Brother Cancer Father Brother Hypertension Father Brother Sister Mother Denies family history of Psychiatric illness Chronic kidney disease (CKD) Suicide Anesthesia complication Bleeding disorder Family history of premature coronary artery disease Lung disease Stroke Social History Smoking and tobacco status: former smoker Second hand smoke exposure: No Alcohol intake: never Pertinent Exam Findings alert, oriented x 3, clear to auscultation bilaterally and regular rate & rhythm Conscious Sedation Assessment PATIENT ASSESSED PRIOR TO SEDATION, WITH NO CHANGE NOTED: Yes AIRWAY EVAL/ANESTHESIA PLAN: normal airway, ASA III, Local Anesthesia, Risks, benefits & alternatives of sedation and/or procedure discussed and Patient agrees to continue as planned ADDITIONAL INFORMATION: Moderate sedation Recommendations Surgery/Procedure today (Peripheral angiogram with possible intervention) Coding Level of Care Code Acute Code for [facility] Fwanselmo
[2023-02-05 09:30] LABS: Partial Thromboplastin Time > 250.0 SECONDS (23.9-36.7)
--- NOTE | 2023-02-05 09:53 | PC.NURSE ---
Called Dr Ba to report critical PTT value and patient's elevated BP. New orders given et implemented.
[2023-02-05] MEDS: hyDRALAzine 20 mg/mL INJ 1 mL 10 MG IVP (10:10)
[2023-02-05 12:06] LABS: Partial Thromboplastin Time 37.4 SECONDS (23.9-36.7)
--- NOTE | 2023-02-05 13:13 | PC.NURSE ---
Called Dr. Pablo to inform of patient's repeat PTT. Orders given to pull sheath and wait for further orders.
--- NOTE | 2023-02-05 14:30 | PC.NURSE ---
Fem art sheath removed. Manual pressure held.
[2023-02-05] MEDS: sodium chloride 0.9% 1,000 ML 100 ML IV (21:04)
[2023-02-05] MEDS: ALPRAZolam 0.5 mg Tablet 0.25 MG PO (21:04)
[2023-02-06] VITALS (8 sets, daily range): BP systolic 129–182; BP diastolic 73–116; PULSE 69–115; RESP 6–30; TEMP 36.7; O2SAT 94–97
[2023-02-06] MEDS: ondansetron 2 mg/ML SDV 2 mL 4 MG IVP (00:18)
[2023-02-06 04:23] LABS: Basophils # 0.1 10^3/uL (0.0-0.1); Basophils % 0.8 %; Eosinophils # 0.2 10^3/uL (0.0-0.8); Eosinophils % 2.6 %; Hematocrit 45.4 % (42.0-52.0); Hemoglobin 14.9 g/dL (11.7-16.6); Lymphocytes # 1.4 10^3/uL (0.8-4.8); Lymphocytes % 19.6 %; Mean Corpuscular HGB Conc 32.8 g/dL (30.0-36.0); Mean Corpuscular Hemoglobin 28.8 pg (28.0-34.0); Mean Corpuscular Volume 87.8 fl (80-94); Mean Platelet Volume 10.4 fL (7.4-10.4); Monocytes # 0.5 10^3/uL (0.2-0.9); Monocytes % 6.8 %; Neutrophils # 5.02 10^3/uL (1.8-7.7); Neutrophils % 69.8 %; Nucleated Red Blood Cells % 0 %; Platelet Count 183 10^3/cmm (130-400); Red Blood Count 5.17 10^6/uL (4.1-5.3); Red Cell Distribution Width 13.2 % (12.1-15.1); White Blood Count 7.2 10^3/uL (4.0-10.0)
[2023-02-06 04:39] LABS: Anion Gap 12.8 (5-19); Blood Urea Nitrogen 13 mg/dL (8-23); Calcium 8.6 mg/dL (8.5-10.5); Carbon Dioxide 25 mmol/L (22-29); Chloride 105 mmol/L (98-107); Glomerular Filtration Rate 55.4 mL/min (90-130); Glucose 127 mg/dL (65-115); Osmolality Calculated 288 mOsm/kg (285-295); Potassium 4.8 mmol/L (3.5-5.1); Sodium 138 mmol/L (136-145)
--- NOTE | 2023-02-06 07:11 | P.DS_ITS ---
Discharge Providers Date of Admission: 02/05/23 09:13 Date of Discharge: February 06, 2023 Attending Provider at Admission: Washington Ba M.D Attending Provider at Discharge: Washington Ba M.D Primary Care Provider: Daniel Narayanan MD Reason for Visit Reason for Visit: Severe lifetyle limiting claudication Brief History: 63-year-old man with past medical history of CAD, PAD, hypertension who has been having severe bilateral claudication symptoms.? He underwent CTA that showed total occlusion of the left SFA.? Plan is for peripheral angiogram with possible percutaneous intervention. Hospital Course Hospital Course Patient underwent successful revascularization of the left mid SFA with orbital arthrectomy and balloon angioplasty. Patient stayed in hospital overnight and was discharged in a stable condition. Physical Exam Narrative: GENERAL: Patient is alert, awake and oriented x3. [] NECK: No jugular vein distension. [] HEENT: No cyanosis. No icterus. No pallor. [] HEART: Regular S1 and S2. No murmur, rub or gallop. [] LUNGS: Clear to auscultate bilaterally. [] CENTRAL NERVOUS SYSTEM: Grossly nonfocal. [] EXTREMITIES: Lower extremities with no edema bilaterally. 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 Routine Exams 02/05/23 06:00 Taken Laboratory Results WBC 7.2 10^3/uL (4.0-10.0) 02/06/23 04:04 RBC 5.17 10^6/uL (4.1-5.3) 02/06/23 04:04 Hgb 14.9 g/dL (11.7-16.6) 02/06/23 04:04 Hct 45.4 % (42.0-52.0) 02/06/23 04:04 MCV 87.8 fl (80-94) 02/06/23 04:04 MCH 28.8 pg (28.0-34.0) 02/06/23 04:04 MCHC 32.8 g/dL (30.0-36.0) 02/06/23 04:04 RDW 13.2 % (12.1-15.1) 02/06/23 04:04 Plt Count 183 10^3/cmm (130-400) 02/06/23 04:04 MPV 10.4 fL (7.4-10.4) 02/06/23 04:04 Neut % (Auto) 69.8 % 02/06/23 04:04 Lymph % (Auto) 19.6 % 02/06/23 04:04 Garvin % (Auto) 6.8 % 02/06/23 04:04 Eos % (Auto) 2.6 % 02/06/23 04:04 Baso % (Auto) 0.8 % 02/06/23 04:04 Neut # (Auto) 5.02 10^3/uL (1.8-7.7) 02/06/23 04:04 Lymph # (Auto) 1.4 10^3/uL (0.8-4.8) 02/06/23 04:04 Garvin # (Auto) 0.5 10^3/uL (0.2-0.9) 02/06/23 04:04 Eos # (Auto) 0.2 10^3/uL (0.0-0.8) 02/06/23 04:04 Baso # (Auto) 0.1 10^3/uL (0.0-0.1) 02/06/23 04:04 Nucleated RBC % (auto) 0 % 02/06/23 04:04 Nucleated RBCs # 0.0 /100WBC 02/06/23 04:04 APTT 37.4 SECONDS (23.9-36.7) H D 02/05/23 11:30 Sodium 138 mmol/L (136-145) 02/06/23 04:04 Potassium 4.8 mmol/L (3.5-5.1) 02/06/23 04:04 Chloride 105 mmol/L (98-107) 02/06/23 04:04 Carbon Dioxide 25 mmol/L (22-29) 02/06/23 04:04 Anion Gap 12.8 (5-19) 02/06/23 04:04 BUN 13 mg/dL (8-23) 02/06/23 04:04 Creatinine 1.3 mg/dL (0.7-1.2) H 02/06/23 04:04 GFR Calculation 55.4 mL/min (90-130) L 02/06/23 04:04 Glucose 127 mg/dL (65-115) H 02/06/23 04:04 Calculated Osmolality 288 mOsm/kg (285-295) 02/06/23 04:04 Calcium 8.6 mg/dL (8.5-10.5) 02/06/23 04:04 Vitals Last Vital Signs Temp 98.0 F 02/05/23 06:00 Pulse 69 02/06/23 05:44 Resp 18 02/06/23 05:00 BP 159/101 02/06/23 05:00 Pulse Ox 94 02/06/23 05:00 O2 Del Method 02/05/23 23:41 Discharge Plan Discharge Patient Disposition: Home Condition: Stable Prescriptions: New clopidogrel 75 mg tablet 75 mg PO DAILY Qty: 90 1RF Continued aspirin [Adult Aspirin Regimen] 81 mg tablet,delayed release (DR/EC) 81 mg PO DAILY Qty: 90 3RF nitroglycerin 0.4 mg tablet, sublingual See Rx Instructions .ROUTE .COMPLEX Qty: 25 3RF Dose Instruction: DISSOLVE 1 TABLET UNDER TONGUE EVERY 5 MINUTES NEEDED FOR PAIN Rx Instructions: DISSOLVE 1 TABLET UNDER TONGUE EVERY 5 MINUTES NEEDED FOR PAIN morphine [MS Contin] 100 mg tablet extended release 100 mg PO Q12H 30 Days Qty: 60 0RF temazepam 30 mg capsule 30 - 60 mg PO .AT BEDTIME Qty: 60 3RF Rx Instructions: 340b amlodipine 10 mg tablet 10 mg PO QDAY Qty: 30 6RF ezetimibe 10 mg tablet 10 mg PO QDAY Qty: 30 3RF Movantik 25 mg tablet 25 mg PO QAM Qty: 30 6RF morphine [MS Contin] 100 mg tablet extended release 100 mg PO Q12H 30 Days Qty: 60 0RF lisinopril 40 mg tablet 40 QAM Rx Instructions: TAKE 1 TABLET BY MOUTH EVERY DAY Discharge Orders: Discharge Order (Routine); Ordered 02/06/23 Ordered By: Washington Ba Referrals: [place] Ba M.D [Physician] - 2 months Annabelle Ross FNP [Nurse Practitioner] - 4-7 days Discharge Diet: Cardiac Discharge Activity: Increase activity as tolerated Patient Instructions: Clopidogrel (By mouth), Heart Healthy Diet (DC), Peripheral Vascular Angioplasty (DC), Opioid Safety Discharge Attestations Time Spent in Discharge Care*: less than 30 min Quality Metrics Clinical Quality Measures [ No reported AMI, CVA or VTE this stay] Coding Level of Care Code Acute Code for Chg Fwd Diagnoses
--- NOTE | 2023-02-06 07:26 | PC.PHAR ---
pt has orders in can not complete med rec
[2023-02-06] MEDS: clopidogrel 75 mg Tablet PO (08:19)
[2023-02-06] MEDS: aspirin 81 mg EC Tablet PO (08:19)
[2023-02-06] MEDS: pneumococcal (23 valent) SDV 0.5 mL IM (08:31)
== END 2023-02-06 09:08 | disposition home or self-care (01) ==
LOC: ICU 09:14
PROVIDERS: Admitting Provider Internal Medicine; PCP Internal Medicine; Visit Provider Internal Medicine
DX: I73.9 Peripheral vascular disease, unspecified (principal); I77.1 Stricture of artery; Z23 Encounter for immunization; Z79.82 Long term (current) use of aspirin; Z79.891 Long term (current) use of opiate analgesic; I10 Essential (primary) hypertension; E78.5 Hyperlipidemia, unspecified; Z87.891 Personal history of nicotine dependence; I25.10 Atherosclerotic heart disease of native coronary artery without angina pectoris
CPT/HCPCS: 36415; 37224; 37225; 75625; 75716; 80048; 85025; 85730; 90471; 90686; 90732; 96361; 96365; 99152; 99153; C1724; C1725; C1769; C1887; C1894; C2623; G0378; J0360; J1644; J2250; J2405; J3010; J3490; J7030; Q0163; Q9967

== ENCOUNTER → 2023-03-20 09:32 | Outpatient (BNVA) | payer MEDICARE, MEDICAID, SELFPAY | PROVIDERS: PCP Internal Medicine; Visit Provider Nurse Practitioner Family | DX: I73.9 Peripheral vascular disease, unspecified (principal); Z87.891 Personal history of nicotine dependence | CPT/HCPCS: 36415; 80048; 99214 ==

== ENCOUNTER → 2023-06-09 14:56 | Outpatient (BNVA) | payer MEDICARE, MEDICAID, SELFPAY | PROVIDERS: PCP Internal Medicine; Visit Provider Internal Medicine | DX: I10 Essential (primary) hypertension (principal); I73.9 Peripheral vascular disease, unspecified | CPT/HCPCS: 36415; 80048; 83880; 99214 ==

== ENCOUNTER → 2023-07-06 13:55 | Outpatient (BNVA) | payer MEDICARE, MEDICAID, SELFPAY | PROVIDERS: PCP Internal Medicine; Visit Provider Nurse Practitioner Family | DX: I73.9 Peripheral vascular disease, unspecified (principal) | CPT/HCPCS: 99214 ==

== ENCOUNTER 2023-07-28 13:26 | Outpatient (CLI) | payer MEDICARE, MEDICAID, SELFPAY ==
[2023-07-28 14:21] LABS: Anion Gap 13.1 (5-19); Blood Urea Nitrogen 10 mg/dL (8-23); Calcium 8.6 mg/dL (8.5-10.5); Carbon Dioxide 24 mmol/L (22-29); Chloride 102 mmol/L (98-107); Glomerular Filtration Rate 55.4 mL/min (90-130); Glucose 107 mg/dL (65-115); Osmolality Calculated 280 mOsm/kg (285-295); Potassium 4.1 mmol/L (3.5-5.1); Sodium 135 mmol/L (136-145)
== END 2023-07-28 13:27 | disposition home or self-care (01) ==
LOC: LAB 13:36
PROVIDERS: PCP Internal Medicine; Referring Provider Nurse Practitioner Family; Visit Provider Internal Medicine
DX: I73.9 Peripheral vascular disease, unspecified (principal)
CPT/HCPCS: 36415; 80048

== ENCOUNTER → 2023-08-20 13:26 | Outpatient (BNVA) | payer MEDICARE, MEDICAID, SELFPAY | PROVIDERS: PCP Internal Medicine; Visit Provider Nurse Practitioner Family | DX: I83.893 Varicose veins of bilateral lower extremities with other complications (principal) | CPT/HCPCS: 99214 ==

== ENCOUNTER 2023-08-28 09:14 | Outpatient (CLI) | payer MEDICARE, MEDICAID, SELFPAY ==
--- NOTE | 2023-08-28 09:30 | USCV_ITS ---
Rashard Lovelace Age: 63 Gender: M : 1960 Exam Date: 08/28/2023 09:43 Ordering Phys: Annabelle Ross Technologist: Joseph Borrego [place] [facility] [place]: HISTORY: PROCEDURES: FINDINGS: There is no evidence of bilateral deep vein thrombosis. No evidence of superficial thrombosis in the bilateral saphenous system. No evidence of reflux was noted in the bilateral deep venous system. No venous reflux noted in the bilateral greater saphenous vein. No venous reflux noted in the bilateral small saphenous vein. The veins were found to be easily compressible with spontaneous blood flow. Non pulsatile flow pattern. CONCLUSIONS No evidence of DVT in the above-mentioned identifiable veins. No significant reflux , either in the deep or in the superficial veins. The venous segments were found to be more superficial on the right side. Normal caliber veins bilaterally Dr Sury Villafana MD [facility] (Electronically Signed) Final Date: 28 August 2023 12:05 S
== END 2023-08-28 09:15 | disposition home or self-care (01) ==
PROVIDERS: PCP Internal Medicine; Visit Provider Nurse Practitioner Family
DX: I83.893 Varicose veins of bilateral lower extremities with other complications (principal)
CPT/HCPCS: 93970

== ENCOUNTER 2023-09-15 13:02 | Outpatient (CLI) | payer MEDICARE, MEDICAID, SELFPAY ==
--- NOTE | 2023-09-15 13:00 | USCV_ITS ---
Rashard Lovelace Age: 63 Gender: M : 1960 Exam Date: 09/15/2023 13:15 Ordering Phys: Annabelle Ross Technologist: CT Exam Location: [facility] – [place] Indication: pvd Risk Factors: Previous Vascular Surgery: RIGHT LEFT BP: 148.0 / 81.00 BP: 150.0/ 80.00 0 0 Waveform Velocity (cm/s) Velocity (cm/s) Waveform Monophasic 142.5 Iliac Prox 116.5 Monophasic Monophasic 139.9 Iliac Mid 121.6 Monophasic Monophasic Iliac Distal Triphasic 142.5 108.5 Monophasic 129.2 DENTAL SERVICE CHIEF 159.6 Monophasic Monophasic 147.0 SFA Prox 185.4 Monophasic Monophasic 185.8 SFA Mid 139.0 Monophasic Monophasic 228.4 SFA Dist 165.9 Monophasic Monophasic 77.9 POP 58.1 Monophasic Monophasic 98.0 ACTUARIAL TECHNICIAN 67.3 Monophasic Monophasic 90.8 DPA 36.8 Monophasic 0.9 MORRIS 0.8 FINDINGS Mild to moderate diffuse plaques at the iliac and common femoral arteries bilaterally. The stent in the mid and distal SFA on the right side appeared to be patent. The ?stent in the mid SFA on the left side also appears to be patent. Mild to moderate diffuse plaque in the proximal popliteal and proximal segments of the infrapopliteal vessels Resting MORRIS is 0.9 on the right side and 0.8 on the left side CONCLUSIONS 1. Abnormal resting ABIs bilaterally with a history of mild peripheral artery disease. 2. The stented mid and distal segments of the right femoral artery and ? distal segment of the left femoral artery were found to be patent, with no significant stenosis. 3. Mild to moderate diffuse plaques in the iliac and common femoral arteries bilaterally 4. Compared to the study from 2020, the resting MORRIS has slightly improved on both sides Dr Sury Villafana MD [facility] (Electronically Signed) Final Date: 21 September 2023 19:35 S
== END 2023-09-15 13:03 | disposition home or self-care (01) ==
LOC: RAD 13:02
PROVIDERS: PCP Internal Medicine; Visit Provider Nurse Practitioner Family
DX: I73.9 Peripheral vascular disease, unspecified (principal); L97.921 Non-pressure chronic ulcer of unspecified part of left lower leg limited to breakdown of skin
CPT/HCPCS: 93925

== ENCOUNTER 2023-11-13 13:13 | Emergency (ER) | payer MEDICARE, MEDICAID, SELFPAY ==
[2023-11-13 13:19] VITALS: BP 175/97; PULSE 96; RESP 16; TEMP 36.4; O2SAT 100
[2023-11-13 15:07] LABS: Basophils # 0.1 10^3/uL (0.0-0.1); Basophils % 0.7 %; Eosinophils # 0.2 10^3/uL (0.0-0.8); Eosinophils % 2.2 %; Hematocrit 56.1 % (37-53); Lymphocytes # 1.6 10^3/uL (0.8-4.8); Lymphocytes % 21.6 %; Mean Corpuscular HGB Conc 33.5 g/dL (30-55); Mean Corpuscular Hemoglobin 28.4 pg (27-33); Mean Corpuscular Volume 84.7 fl (82-101); Mean Platelet Volume 10.5 fL (7.4-10.4); Monocytes # 0.5 10^3/uL (0.2-0.9); Monocytes % 6.6 %; Neutrophils # 5.03 10^3/uL (1.8-7.7); Neutrophils % 68.6 %; Nucleated Red Blood Cells % 0 %; Platelet Count 223 10^3/cmm (157-399); Red Blood Count 6.62 10^6/uL (3.85-5.65); Red Cell Distribution Width 14.9 % (12.1-15.1); White Blood Count 7.32 10^3/uL (3.29-11.43)
[2023-11-13 15:25] LABS: Alanine Aminotransferase 82 U/L (0-41); Albumin Level 3.8 g/dL (3.5-5.2); Alkaline Phosphatase 93 U/L (40-130); Anion Gap 10.7 (5-19); Aspartate Amino Transferase 50 U/L (0-40); Blood Urea Nitrogen 19 mg/dL (8-23); Calcium 8.9 mg/dL (8.5-10.5); Carbon Dioxide 28 mmol/L (22-29); Chloride 99 mmol/L (98-107); Glomerular Filtration Rate 55.4 mL/min (90-130); Glucose 104 mg/dL (65-115); Lipase 116 U/L (13-60); Osmolality Calculated 279 mOsm/kg (285-295); Potassium 4.7 mmol/L (3.5-5.1); Sodium 133 mmol/L (136-145); Total Bilirubin 0.5 mg/dL (0.15-1.2); Total Protein 7.8 g/dL (6.6-8.7)
--- NOTE | 2023-11-13 16:04 | CTR_ITS ---
PROCEDURE INFORMATION: Exam: CT Abdomen And Pelvis With Contrast Exam date and time: 11/13/2023 4:48 PM Age: 63 years old Clinical indication: Constipation; Abdominal pain; Colic; Additional info: L back/l abdominal pain; Constipation TECHNIQUE: Imaging protocol: Computed tomography of the abdomen and pelvis with contrast. Contrast material: OMNI 350; Contrast volume: 100 ml; Contrast route: INTRAVENOUS (IV); COMPARISON: CT angio abd aorta runof [id number] 01/15/2023 12:41 PM RADIATION DOSE METRICS: Total DLP (mGy-cm): 1082.31 FINDINGS: Lungs: No significant pathology at the imaged lung bases. Coronary arteries: Coronary artery calcifications. Mediastinal space: Mural thickening distal thoracic esophagus. Liver: No significant liver pathology. Gallbladder and bile ducts: Distended gallbladder without additional pathologic finding. No biliary dilatation. Pancreas: No significant pancreatic pathology. Spleen: No significant splenic pathology. Adrenal glands: No significant adrenal pathology. Kidneys and ureters: No significant renal pathology. Stomach and bowel: Colonic diverticulosis without evidence of focal inflammatory change. Moderate amount of colonic stool. Appendix: Appendix within normal limits. Intraperitoneal space: No ascites. Vasculature: No abdominal aortic aneurysm. Lymph nodes: No enlarged nodes by criteria. Urinary bladder: Bladder wall appears thickened although this is accentuated by incomplete distention. Reproductive: No significant prostate pathology. Bones/joints: Mild degenerative change present in the spine. Soft tissues: Small fat containing umbilical hernia. Small bilateral fat containing inguinal hernias. Other findings: Evaluation limited by motion artifacts. CT/CT abdomen pelvis w con* [id number] IMPRESSION: 1. No acute pathology. 2. Abundant colonic stool with diverticula but no acute inflammatory change. 3. Distended gallbladder without additional pathologic finding. 4. Mural thickening distal thoracic esophagus.
--- NOTE | 2023-11-13 16:07 | ED_ITS ---
Documented by User: [email or web address] Webber 11/13/23 16:40 HPI - Back Pain/Injury 2 General: Chief Complaint: Abdominal Pain Stated Complaint: unable to use restroom, back pain Time Seen by Provider: 11/13/23 15:50 Source: patient Mode of arrival: wheelchair Limitations: no limitations History of Present Illness: Patient is a 63-year-old male presents to ED today with a complaint of left lower back pain over the past 4 days or so. He denies injury or trauma but states he has been moving items around in his house. He states there is no radicular symptoms to his back pain into his buttock or lower extremity. He feels like pain is worse with standing, sitting, and walking. He does feel like pain sometimes radiates into the left side of his abdomen. He has noticed inability to have a bowel movement over the past 4 to 5 days. Patient states he normally defecates daily. He states he has tried multiple OTC remedies without relief. Denies flank pain or urinary complaints. MD elicited complaint: back pain Onset (ago): day(s) Timing: constant Severity: severe Similar Symptoms Previously: No Location: left lower back Radiation: abdomen Exacerbating factors: movement, sitting upright and walking Relieving factors: supine Associated symptoms: Reports abdominal pain, change in bowel habits and other (constipation); Deny chills, difficulty walking, dysuria, fatigue, fever(s), nausea, urinary urgency or vomiting Work related injury: No Review of Systems 2 Const: Denies: fever(s), chills, body aches, fatigue or malaise Card: Denies: chest pain Resp: Denies: dyspnea GI: Reports: abdominal pain, constipation and change in bowel habits; Denies: nausea, vomiting, diarrhea, hematochezia or melena : Denies: flank pain, difficulty urinating, dysuria, urinary frequency, urinary urgency or urinary hesitancy Musc: Reports: back pain; Denies: neck pain, extremity pain, extremity swelling, joint pain or joint swelling Skin/Breast: Denies: rash Neuro: Denies: numbness in extremities, weakness in extremities, sensory changes or difficulty walking PFS ED 2 PFSH: Medical History 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 Peripheral vascular disease 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 Stent to mid right SFA in 2016 Presence of stent in LAD coronary artery Bilateral tennis elbow Post-traumatic osteoarthritis of knees, bilateral Chronic pain syndrome Surgical History S/P right coronary artery (RCA) stent placement Family History Father CAD (coronary artery disease) Cancer Hyperlipidemia Hypertension Brother Cancer Diabetes Hyperlipidemia Hypertension Sister Clotting disorder Dementia Diabetes Hypertension Mother Diabetes Hypertension Denies family history of Psychiatric illness Chronic kidney disease (CKD) Suicide Anesthesia complication Bleeding disorder Family history of premature coronary artery disease Lung disease Stroke Social History Smoking and tobacco/nicotine status: former use of tobacco/nicotine Second hand smoke exposure: No Alcohol intake: never Substance/Drug Use: never Physical Exam 2 Const: COMMON NORMALS: no acute distress, average body habitus, patient oriented x3, no limitations, alert and well nourished GENERAL APPEARANCE: c ooperative NUTRITIONAL APPEARANCE: overweight ORIENTATION/CONSCIOUSNESS: Y es awake, Yes oriented to person, Yes oriented to place and Yes oriented to time Eye: COMMON NORMALS: no scleral icterus Resp: COMMON NORMALS: normal respiratory effort and clear to auscultation bilaterally AUSCULTATION: clear to auscultation bilaterally Cardio: COMMON NORMALS: regular rate and regular rhythm RATE: regular rate RHYTHM: regular rhythm GI: COMMON NORMALS: Normal to inspection, nondistended, normoactive bowel sounds present, Soft to palpation, No hepatosplenomegaly present and no masses INSPECTION: Yes normal to inspection AUSCULTATION: Yes normoactive bowel sounds PALPATION: Yes Soft to palpation, Yes Tenderness to palpation present (GI) (mild tenderness throughout; moreso to L lower abdomen/back), No Guarding due to palpation present (GI), No Rigid due to palpation and Yes No hepatosplenomegaly present : COMMON NORMALS: Yes no CVA tenderness BLADDER/KIDNEY EXAM: Yes no CVA tenderness Back/Pelvis: COMMON NORMALS: no CVA tenderness, thoracic and lumbar spine normal to inspection, no thoracic nor lumbar tenderness, thoraco-lumbar ROM normal and straight leg raise negative bilaterally LUMBAR SPINE/LOWER BACK: Y es paraspinal muscle tenderness PELVIS: Yes buttocks normal SACRUM: no tenderness COCCYX: no tenderness BACK IMAGE (MALE): 1. TTP Extremity: COMMON NORMALS: normal to inspection, full ROM and capillary refill normal GENERAL: Yes normal exam except as noted Neuro: COMMON NORMALS: patient oriented x3, moves all extremities, no focal motor deficits and no sensory deficits noted SENSORIUM/ORIENTATION: Yes alert, Yes oriented to person, Yes oriented to place and Yes oriented to time Skin: COMMON NORMALS: no rashes or lesions noted GENERAL SKIN EXAM: no rashes or lesions noted Course 2 Vital Signs: Vital signs: Vital Signs Temperature 97.6 F 11/13/23 13:19 Pulse Rate 71 11/13/23 17:21 Respiratory Rate 14 11/13/23 17:14 Blood Pressure 162/107 11/13/23 17:14 Pulse Oximetry 97 11/13/23 17:21 Oxygen Delivery Me thod Room Air 11/13/23 17:21 MDM - Back Pain/Injury Labs 11/13/23 14:49 11/13/23 14:49 Radiology Impressions Abdomen/Pelvis CT 11/13/23 16:04 IMPRESSION: 1. No acute pathology. 2. Abundant colonic stool with diverticula but no acute inflammatory change. 3. Distended gallbladder without additional pathologic finding. 4. Mural thickening distal thoracic esophagus. Laboratory Results WBC 7.32 10^3/uL (3.29-11.43) 11/13/23 14:49 RBC 6.62 10^6/uL (3.85-5.65) H 11/13/23 14:49 Hgb 18.80 g/dL (11.27-16.99) H 11/13/23 14:49 Hct 56.1 % (37-53) H 11/13/23 14:49 MCV 84.7 fl (82-101) 11/13/23 14:49 MCH 28.4 pg (27-33) 11/13/23 14:49 MCHC 33.5 g/dL (30-55) 11/13/23 14:49 RDW 14.9 % (12.1-15.1) 11/13/23 14:49 Plt Count 223 10^3/cmm (157-399) 11/13/23 14:49 MPV 10.5 fL (7.4-10.4) H 11/13/23 14:49 Neut % (Auto) 68.6 % 11/13/23 14:49 Lymph % (Auto) 21.6 % 11/13/23 14:49 Iron % (Auto) 6.6 % 11/13/23 14:49 Eos % (Auto) 2.2 % 11/13/23 14:49 Baso % (Auto) 0.7 % 11/13/23 14:49 Neut # (Auto) 5.03 10^3/uL (1.8-7.7) 11/13/23 14:49 Lymph # (Auto) 1.6 10^3/uL (0.8-4.8) 11/13/23 14:49 Iron # (Auto) 0.5 10^3/uL (0.2-0.9) 11/13/23 14:49 Eos # (Auto) 0.2 10^3/uL (0.0-0.8) 11/13/23 14:49 Baso # (Auto) 0.1 10^3/uL (0.0-0.1) 11/13/23 14:49 Nucleated RBC % (auto) 0 % 11/13/23 14:49 Nucleated RBCs # 0.0 /100WBC 11/13/23 14:49 Sodium 133 mmol/L (136-145) L 11/13/23 14:49 Potassium 4.7 mmol/L (3.5-5.1) 11/13/23 14:49 Chloride 99 mmol/L (98-107) 11/13/23 14:49 Carbon Dioxide 28 mmol/L (22-29) 11/13/23 14:49 Anion Gap 10.7 (5-19) 11/13/23 14:49 BUN 19 mg/dL (8-23) 11/13/23 14:49 Creatinine 1.3 mg/dL (0.7-1.2) H 11/13/23 14:49 GFR Calculation 55.4 mL/min (90-130) L 11/13/23 14:49 Glucose 104 mg/dL (65-115) 11/13/23 14:49 Calculated Osmolality 279 mOsm/kg (285-295) L 11/13/23 14:49 Calcium 8.9 mg/dL (8.5-10.5) 11/13/23 14:49 Total Bilirubin 0.5 mg/dL (0.15-1.2) 11/13/23 14:49 AST 50 U/L (0-40) H 11/13/23 14:49 ALT 82 U/L (0-41) H 11/13/23 14:49 Alkaline Phosphatase 93 U/L (40-130) 11/13/23 14:49 Total Protein 7.8 g/dL (6.6-8.7) 11/13/23 14:49 Albumin 3.8 g/dL (3.5-5.2) 11/13/23 14:49 Globulin 4.0 g/dL (1.3-4.6) 11/13/23 14:49 Lipase 116 U/L (13-60) H 11/13/23 14:49 Urine Color Yellow (Yellow) 11/13/23 16:24 Urine Appearance Clear (CLEAR) 11/13/23 16:24 Urine pH 5 (5-7) 11/13/23 16:24 Ur Specific [place] 1.020 (1.005-1.030) 11/13/23 16:24 Urine Protein 1+ (Negative) H 11/13/23 16:24 Urine Glucose (UA) Norm (Normal) 11/13/23 16:24 Urine Ketones Negative (Negative) 11/13/23 16:24 Urine Blood Trace (Negative) H 11/13/23 16:24 Urine Nitrate Negative (Negative) 11/13/23 16:24 Urine Bilirubin 1+ (Negative) H 11/13/23 16:24 Urine Urobilinogen Norm mg/dL (Negative) 11/13/23 16:24 Ur Leukocyte Esterase Negative (Negative) 11/13/23 16:24 Urine RBC 0-4 /hpf (0-2) H 11/13/23 16:24 Urine WBC 0-4 /hpf (0-5) H 11/13/23 16:24 Ur Squamous Epith Cells 0-4 /hpf (0-5) H 11/13/23 16:24 Amorphous Sediment Not Reportable 11/13/23 16:24 Urine Bacteria Trace /hpf (NONE) 11/13/23 16:24 Discharge Plan Discharge Patient Disposition: Home Clinical Impression: Abdominal pain, Constipation Condition: Stable Prescriptions: No Action furosemide 20 mg tablet 20 mg PO BID Qty: 60 5RF aspirin [Adult Aspirin Regimen] 81 mg tablet,delayed release (DR/EC) 81 mg PO DAILY Qty: 90 3RF nitroglycerin 0.4 mg tablet, sublingual See Rx Instructions .ROUTE .COMPLEX Qty: 25 3RF Dose Instruction: DISSOLVE 1 TABLET UNDER TONGUE EVERY 5 MINUTES NEEDED FOR PAIN Rx Instructions: DISSOLVE 1 TABLET UNDER TONGUE EVERY 5 MINUTES NEEDED FOR PAIN morphine [MS Contin] 100 mg tablet extended release 100 mg PO Q12H 30 Days Qty: 60 0RF temazepam 30 mg capsule 30 - 60 mg PO .AT BEDTIME Qty: 60 3RF Rx Instructions: 340b amlodipine 10 mg tablet 10 mg PO QDAY Qty: 30 6RF ezetimibe 10 mg tablet 10 mg PO QDAY Qty: 30 3RF Movantik 25 mg tablet 25 mg PO QAM Qty: 30 6RF morphine [MS Contin] 100 mg tablet extended release 100 mg PO Q12H 30 Days Qty: 60 0RF lisinopril 40 mg tablet 40 QAM Rx Instructions: TAKE 1 TABLET BY MOUTH EVERY DAY clopidogrel 75 mg tablet 75 mg PO DAILY Qty: 90 1RF Discharge Orders: Discharge ED (Routine); Ordered 11/13/23 Ordered By: Nicole Georges Referrals: Daniel Narayanan MD [Primary Care Provider] - Discharge Diet: Advance as tolerated Discharge Activity: Resume usual activity Patient Instructions: Constipation - Adult, Abdominal Pain (ED), Opioid Safety, Pain Management Activity Restrictions/Additional Instructions: With managing constipation, he will likely benefit from using different types of medications. Colace?is a stool softener that you take every day to help prevent constipation for harder stools that become difficult to pass. MiraLAX and mag citrate are laxative. Glycerin suppository and enemas?glycerin suppository will lubricate hard stools and make it easier to pass. Enema as can help assist in the same way. The medication I gave you here Relistor is a medication that is designed for patients that deal with opiate induced chronic constipation. Talk with your provider about additional remedies for chronic constipation. As discussed we have mild elevation in your lipase and liver function test and there was evidence of gallbladder dilation. Monitor your symptoms closely. 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 Stent to mid right SFA in 2016 Presence of stent in LAD coronary artery Bilateral tennis elbow Post-traumatic osteoarthritis of knees, bilateral Chronic pain syndrome Surgical History S/P right coronary artery (RCA) stent placement Family History Father CAD (coronary artery disease) Cancer Hyperlipidemia Hypertension Brother Cancer Diabetes Hyperlipidemia Hypertension Sister Clotting disorder Dementia Diabetes Hypertension Mother Diabetes Hypertension Denies family history of Psychiatric illness Chronic kidney disease (CKD) Suicide Anesthesia complication Bleeding disorder Family history of premature coronary artery disease Lung disease Stroke Social History Smoking and tobacco/nicotine status: former use of tobacco/nicotine Second hand smoke exposure: No Alcohol intake: never Substance/Drug Use: never Physical Exam 2 Back/Pelvis: BACK IMAGE (MALE): 1. TTP Course 2 Vital Signs: Vital signs: Vital Signs Temperature 97.6 F 11/13/23 13:19 Pulse Rate 71 11/13/23 17:21 Respiratory Rate 14 11/13/23 17:14 Blood Pressure 162/107 11/13/23 17:14 Pulse Oximetry 97 11/13/23 17:21 Oxygen Delivery Me thod Room Air 11/13/23 17:21 MDM - Back Pain/Injury Medical Decision Making Assumed care at 1700 Patient presented to the emergency department today for left-sided abdominal and back pain. Onset of symptoms in the last few days but worse today. Patient has a history of chronic constipation due to chronic opiate use and currently takes movicol daily. Patient is currently taking 100 mg of morphine twice a day In the emergency department he underwent a CBC, chemistry, lipase and urinalysis. The CBC reveals no anemias, leukocytosis. The chemistry panel reveals mildly elevated creatinine that is unchanged from his baseline. He also has sodium of 133 that is chronic in nature He has mild elevation in his liver function test And on CT while there is no acute pathology noted he does have mild thickening to the distal thoracic esophagus, distended gallbladder without pathological finding, and abundant colonic stool. Patient I reviewed the laboratory and CT findings. I encouraged him to continue monitoring his symptoms and should he develop any epigastric or upper abdominal pain he should follow-up with his primary care doctor. For now I have treated his constipation with glycerin suppository and Relistor. I am also advising him to use mag citrate and MiraLAX and stool softeners at home. Patient should follow-up with his primary care doctor or whoever is prescribing morphine for additional bowel medications Labs 11/13/23 14:49 11/13/23 14:49 Radiology Impressions Abdomen/Pelvis CT 11/13/23 16:04 IMPRESSION: 1. No acute pathology. 2. Abundant colonic stool with diverticula but no acute inflammatory change. 3. Distended gallbladder without additional pathologic finding. 4. Mural thickening distal thoracic esophagus. Laboratory Results WBC 7.32 10^3/uL (3.29-11.43) 11/13/23 14:49 RBC 6.62 10^6/uL (3.85-5.65) H 11/13/23 14:49 Hgb 18.80 g/dL (11.27-16.99) H 11/13/23 14:49 Hct 56.1 % (37-53) H 11/13/23 14:49 MCV 84.7 fl (82-101) 11/13/23 14:49 MCH 28.4 pg (27-33) 11/13/23 14:49 MCHC 33.5 g/dL (30-55) 11/13/23 14:49 RDW 14.9 % (12.1-15.1) 11/13/23 14:49 Plt Count 223 10^3/cmm (157-399) 11/13/23 14:49 MPV 10.5 fL (7.4-10.4) H 11/13/23 14:49 Neut % (Auto) 68.6 % 11/13/23 14:49 Lymph % (Auto) 21.6 % 11/13/23 14:49 Iron % (Auto) 6.6 % 11/13/23 14:49 Eos % (Auto) 2.2 % 11/13/23 14:49 Baso % (Auto) 0.7 % 11/13/23 14:49 Neut # (Auto) 5.03 10^3/uL (1.8-7.7) 11/13/23 14:49 Lymph # (Auto) 1.6 10^3/uL (0.8-4.8) 11/13/23 14:49 Iron # (Auto) 0.5 10^3/uL (0.2-0.9) 11/13/23 14:49 Eos # (Auto) 0.2 10^3/uL (0.0-0.8) 11/13/23 14:49 Baso # (Auto) 0.1 10^3/uL (0.0-0.1) 11/13/23 14:49 Nucleated RBC % (auto) 0 % 11/13/23 14:49 Nucleated RBCs # 0.0 /100WBC 11/13/23 14:49 Sodium 133 mmol/L (136-145) L 11/13/23 14:49 Potassium 4.7 mmol/L (3.5-5.1) 11/13/23 14:49 Chloride 99 mmol/L (98-107) 11/13/23 14:49 Carbon Dioxide 28 mmol/L (22-29) 11/13/23 14:49 Anion Gap 10.7 (5-19) 11/13/23 14:49 BUN 19 mg/dL (8-23) 11/13/23 14:49 Creatinine 1.3 mg/dL (0.7-1.2) H 11/13/23 14:49 GFR Calculation 55.4 mL/min (90-130) L 11/13/23 14:49 Glucose 104 mg/dL (65-115) 01/05/24 14:49 Calculated Osmolality 279 mOsm/kg (285-295) L 11/13/23 14:49 Calcium 8.9 mg/dL (8.5-10.5) 11/13/23 14:49 Total Bilirubin 0.5 mg/dL (0.15-1.2) 11/13/23 14:49 AST 50 U/L (0-40) H 11/13/23 14:49 ALT 82 U/L (0-41) H 11/13/23 14:49 Alkaline Phosphatase 93 U/L (40-130) 11/13/23 14:49 Total Protein 7.8 g/dL (6.6-8.7) 11/13/23 14:49 Albumin 3.8 g/dL (3.5-5.2) 11/13/23 14:49 Globulin 4.0 g/dL (1.3-4.6) 11/13/23 14:49 Lipase 116 U/L (13-60) H 11/13/23 14:49 Urine Color Yellow (Yellow) 11/13/23 16:24 Urine Appearance Clear (CLEAR) 11/13/23 16:24 Urine pH 5 (5-7) 11/13/23 16:24 Ur Specific [place] 1.020 (1.005-1.030) 11/13/23 16:24 Urine Protein 1+ (Negative) H 11/13/23 16:24 Urine Glucose (UA) Norm (Normal) 11/13/23 16:24 Urine Ketones Negative (Negative) 11/13/23 16:24 Urine Blood Trace (Negative) H 11/13/23 16:24 Urine Nitrate Negative (Negative) 11/13/23 16:24 Urine Bilirubin 1+ (Negative) H 11/13/23 16:24 Urine Urobilinogen Norm mg/dL (Negative) 11/13/23 16:24 Ur Leukocyte Esterase Negative (Negative) 11/13/23 16:24 Urine RBC 0-4 /hpf (0-2) H 11/13/23 16:24 Urine WBC 0-4 /hpf (0-5) H 11/13/23 16:24 Ur Squamous Epith Cells 0-4 /hpf (0-5) H 11/13/23 16:24 Amorphous Sediment Not Reportable 11/13/23 16:24 Urine Bacteria Trace /hpf (NONE) 11/13/23 16:24 All radiology interpretation(s) finalized by discharge Discharge Plan Discharge Patient Disposition: Home Clinical Impression: Abdominal pain, Constipation Condition: Stable Prescriptions: No Action furosemide 20 mg tablet 20 mg PO BID Qty: 60 5RF aspirin [Adult Aspirin Regimen] 81 mg tablet,delayed release (DR/EC) 81 mg PO DAILY Qty: 90 3RF nitroglycerin 0.4 mg tablet, sublingual See Rx Instructions .ROUTE .COMPLEX Qty: 25 3RF Dose Instruction: DISSOLVE 1 TABLET UNDER TONGUE EVERY 5 MINUTES NEEDED FOR PAIN Rx Instructions: DISSOLVE 1 TABLET UNDER TONGUE EVERY 5 MINUTES NEEDED FOR PAIN morphine [MS Contin] 100 mg tablet extended release 100 mg PO Q12H 30 Days Qty: 60 0RF temazepam 30 mg capsule 30 - 60 mg PO .AT BEDTIME Qty: 60 3RF Rx Instructions: 340b amlodipine 10 mg tablet 10 mg PO QDAY Qty: 30 6RF ezetimibe 10 mg tablet 10 mg PO QDAY Qty: 30 3RF Movantik 25 mg tablet 25 mg PO QAM Qty: 30 6RF morphine [MS Contin] 100 mg tablet extended release 100 mg PO Q12H 30 Days Qty: 60 0RF lisinopril 40 mg tablet 40 QAM Rx Instructions: TAKE 1 TABLET BY MOUTH EVERY DAY clopidogrel 75 mg tablet 75 mg PO DAILY Qty: 90 1RF Discharge Orders: Discharge ED (Routine); Ordered 11/13/23 Ordered By: Nicole Rodriguez McTeer Referrals: Daniel Narayanan MD [Primary Care Provider] - Discharge Diet: Advance as tolerated Discharge Activity: Resume usual activity Patient Instructions: Constipation - Adult, Abdominal Pain (ED), Opioid Safety, Pain Management Activity Restrictions/Additional Instructions: With managing constipation, he will likely benefit from using different types of medications. Colace?is a stool softener that you take every day to help prevent constipation for harder stools that become difficult to pass. MiraLAX and mag citrate are laxative. Glycerin suppository and enemas?glycerin suppository will lubricate hard stools and make it easier to pass. Enema as can help assist in the same way. The medication I gave you here Relistor is a medication that is designed for patients that deal with opiate induced chronic constipation. Talk with your provider about additional remedies for chronic constipation. As discussed we have mild elevation in your lipase and liver function test and there was evidence of gallbladder dilation. Monitor your symptoms closely. If you develop epigastric or right upper quadrant abdominal pain contact your primary care provider or return here as needed for further evaluation Coding Level of Care Code ED Process Description Writer for Emy Ramírez
[2023-11-13] MEDS: iohexol 350 mg/mL 500 mL Btl (per mL) IV (16:30)
[2023-11-13 17:09] VITALS: RESP 18; O2SAT 98
[2023-11-13] MEDS: morphine 4 mg/mL SDV 1 mL 2 MG IVP (17:09)
[2023-11-13 17:14] VITALS: BP 162/107; PULSE 88; RESP 14; O2SAT 97
[2023-11-13 17:21] VITALS: PULSE 71; O2SAT 97
[2023-11-13 17:21] LABS: Add Urine Microscopic? YES; Bacteria Urine TRACE /hpf; Bilirubin Urine 1+ (Negative); Blood Urine Trace (Negative); Glucose Urine UA Norm (Normal); Ketones Urine Negative (Negative); Leukocyte Esterase Urine Negative (Negative); Nitrate Urine Negative (Negative); Protein Urine 1+ (Negative); RBC Urine 0-4 /hpf (0-2); Squamous Epithelial Cell Urine 0-4 /hpf (0-5); Urine Appearance Clear (CLEAR); Urine Color Yellow (Yellow); Urobilinogen Urine Norm (Negative); WBC Urine 0-4 /hpf (0-5); pH Urine 5 (5-7)
[2023-11-13] MEDS: methylnaltrexone 12 /0.6 mL INJ 12 MG SUBCUT (18:11)
[2023-11-13 18:37] VITALS: PULSE 71; O2SAT 97
== END 2023-11-13 18:38 | disposition home or self-care (01) ==
PROVIDERS: Emergency Provider Physician Assistant; PCP Internal Medicine
DX: K59.00 Constipation, unspecified (principal); Z79.82 Long term (current) use of aspirin; Z79.02 Long term (current) use of antithrombotics/antiplatelets; Z87.891 Personal history of nicotine dependence
CPT/HCPCS: 36415; 74177; 80053; 81001; 83690; 85025; 96372; 96374; 99285; J2212; J2270; Q9967

== ENCOUNTER 2023-11-14 18:56 | Emergency (ER) | payer MEDICARE, MEDICAID, SELFPAY ==
[2023-11-14 18:58] VITALS: BP 157/82; PULSE 84; RESP 20; TEMP 36.4; O2SAT 99; BMI 35.4
[2023-11-14 20:20] VITALS: BP 147/80; PULSE 98; O2SAT 98
[2023-11-14] MEDS: orphenadrine 30 mg/mL Inj 2 mL 60 MG IM (20:25)
[2023-11-14] MEDS: ketorolac 60 mg/2 mL INJ IM (20:25)
[2023-11-14] MEDS: dexamethasone 10 mg/mL INJ IM (20:26)
[2023-11-14] MEDS: mineral oil 30 mL UDC PO (20:35)
[2023-11-14] MEDS: magnesium hydroxide 30 mL UDC PO (20:35)
--- NOTE | 2023-11-14 20:55 | W.ED.BACK ---
HPI - Back Pain/Injury General: Chief Complaint: Back Pain/Injury Stated Complaint: Back Pain Time Seen by Provider: 11/14/23 19:29 History of Present Illness: 63-year-old male gentleman with a history of mainly left-sided low back pain for the past couple of days. He relates that he takes pain medication chronically, but this is because of multiple lower extremity surgeries in his past. He had been moving stuff around the house prior to developing the back pain. He was also concerned because he had not had a bowel movement in 4 days. Who presented yesterday with the same complaints and was given an injection. At home, he has had magnesium citrate, glycerin suppositories, and 3 enemas without results in terms of a bowel movement. He denies vomiting or fever. The left-sided back pain does not radiate down his leg. There is no new numbness or tingling. No loss of control of his urine function. 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 Peripheral vascular disease 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 Stent to mid right SFA in 2016 Presence of stent in LAD coronary artery Bilateral tennis elbow Post-traumatic osteoarthritis of knees, bilateral Chronic pain syndrome Surgical History S/P right coronary artery (RCA) stent placement Family History Father CAD (coronary artery disease) Cancer Hyperlipidemia Hypertension Brother Cancer Diabetes Hyperlipidemia Hypertension Sister Clotting disorder Dementia Diabetes Hypertension Mother Diabetes Hypertension Denies family history of Psychiatric illness Chronic kidney disease (CKD) Suicide Anesthesia complication Bleeding disorder Family history of premature coronary artery disease Lung disease Stroke Social History Smoking and tobacco/nicotine status: former use of tobacco/nicotine Second hand smoke exposure: No Alcohol intake: never Substance/Drug Use: never Physical Exam Const: COMMON NORMALS: no acute distress GENERAL APPEARANCE: cooperative; not ill appearing and not frail appearing HENMT: COMMON NORMALS: normocephalic, atraumatic and Normal external nose present HEAD & SCALP: normocephalic and atraumatic FACE & SINUS: normal facial exam and face symmetric NOSE: Normal external nose present Eye: COMMON NORMALS: Equal, round and reactive pupils present and EOMs intact bilaterally PUPIL: Yes Equal, round and reactive pupils present Neck/C-Spine: GENERAL: Yes trachea midline Chest: CHEST: Yes Symmetrical chest wall rise Resp: COMMON NORMALS: normal respiratory effort, No retractions, No use of accessory muscles and clear to auscultation bilaterally AUSCULTATION: clear to auscultation bilaterally Cardio: COMMON NORMALS: regular rate and regular rhythm RATE: regular rate RHYTHM: regular rhythm GI: COMMON NORMALS: Normal to inspection, nondistended, normoactive bowel sounds present Extremity: COMMON NORMALS: no pedal edema Neuro: MIRA COMA SCALE: document GCS findings [place] coma scale eye opening: Spontaneous Mira coma scale verbal response: Orientated Mira coma scale motor response: Obey commands Mira coma scale total score: 15 SENSORY EXAM: Yes extremities (intact) Psych: COMMON NORMALS: speech normal SPEECH: Yes normal speech Skin: COMMON NORMALS: no rashes or lesions noted GENERAL SKIN EXAM: no rashes or lesions noted Course Vital Signs: Vital signs: Vital Signs Temperature 97.5 F L 11/14/23 18:58 Pulse Rate 98 11/14/23 20:20 Respiratory Rate 20 H 11/14/23 18:58 Blood Pressure 147/80 11/14/23 20:20 Pulse Oximetry 98 11/14/23 20:20 Oxygen Delivery Me thod Room Air 11/14/23 20:20 MDM - Back Pain/Injury Medical Decision Making Patient had a full workup in the ER yesterday including laboratory and abdominal CT. It did show constipation. There is no large stool burden in the left colon however or in the rectosigmoid area. There is no fecal impaction. I do not believe his left-sided back pain would be coming from bowel distention related to the constipation. He is given a laxative here, and will prescribe a bowel prep for him at home. His pain seems to be musculoskeletal in nature. He does not have midline tenderness, but does have tenderness along his quadratus lumborum and iliolumbar ligament. He is given injections for this in the ER, as well as a tapering dose of steroid for home. Close outpatient follow-up. Return for new or worsening symptoms. No radiology studies performed this visit Discharge Plan Discharge Patient Disposition: Home Clinical Impression: Sprain and strain of lumbosacral joint/ligament, Constipation Condition: Stable Prescriptions: New Medrol (Judah) 4 mg tablets,dose pack See Rx Instructions .ROUTE .COMPLEX Qty: 21 0RF Rx Instructions: orally per package directions Na 236-22.74-6.74 -5.86 gram recon soln 240 ml PO Q10M Qty: 4000 0RF Rx Instructions: until fecal effluent is clear No Action furosemide 20 mg tablet 20 mg PO BID Qty: 60 5RF aspirin [Adult Aspirin Regimen] 81 mg tablet,delayed release (DR/EC) 81 mg PO DAILY Qty: 90 3RF nitroglycerin 0.4 mg tablet, sublingual See Rx Instructions .ROUTE .COMPLEX Qty: 25 3RF Dose Instruction: DISSOLVE 1 TABLET UNDER TONGUE EVERY 5 MINUTES NEEDED FOR PAIN Rx Instructions: DISSOLVE 1 TABLET UNDER TONGUE EVERY 5 MINUTES NEEDED FOR PAIN morphine [MS Contin] 100 mg tablet extended release 100 mg PO Q12H 30 Days Qty: 60 0RF temazepam 30 mg capsule 30 - 60 mg PO .AT BEDTIME Qty: 60 3RF Rx Instructions: 340b amlodipine 10 mg tablet 10 mg PO QDAY Qty: 30 6RF ezetimibe 10 mg tablet 10 mg PO QDAY Qty: 30 3RF Movantik 25 mg tablet 25 mg PO QAM Qty: 30 6RF morphine [MS Contin] 100 mg tablet extended release 100 mg PO Q12H 30 Days Qty: 60 0RF lisinopril 40 mg tablet 40 QAM Rx Instructions: TAKE 1 TABLET BY MOUTH EVERY DAY clopidogrel 75 mg tablet 75 mg PO DAILY Qty: 90 1RF Discharge Orders: Discharge ED (Routine); Ordered 11/14/23 Ordered By: Jez Bernardo Referrals: Daniel Narayanan MD [Primary Care Provider] - 1-3 days Patient Instructions: Constipation (ED), Acute Low Back Pain (ED), Opioid Safety, Pain Management Activity Restrictions/Additional Instructions: Medications as directed. See your doctor next week. Return for fever, vomiting, blood in stool, other concerning symptoms. Coding Level of Care Code ED Print Inspector for Emy Ramírez
[2023-11-14 20:57] VITALS: BP 147/80; PULSE 88; RESP 18; O2SAT 98
== END 2023-11-14 21:01 | disposition home or self-care (01) ==
PROVIDERS: Emergency Provider Emergency Medicine; PCP Internal Medicine
DX: S33.9XXA Sprain of unspecified parts of lumbar spine and pelvis, initial encounter (principal); S39.012A Strain of muscle, fascia and tendon of lower back, initial encounter; K59.00 Constipation, unspecified; Z79.02 Long term (current) use of antithrombotics/antiplatelets; Z79.82 Long term (current) use of aspirin; Z87.891 Personal history of nicotine dependence; Z79.891 Long term (current) use of opiate analgesic; X58.XXXA Exposure to other specified factors, initial encounter
CPT/HCPCS: 96372; 99284; J1100; J1885; J2360

== ENCOUNTER 2023-11-18 17:20 | Observation (INO) | payer MEDICARE, MEDICAID, SELFPAY ==
[2023-11-18] VITALS (8 sets, daily range): BP systolic 137–180; BP diastolic 79–99; PULSE 69–85; RESP 16–20; TEMP 36.3–36.7; O2SAT 93–100; BMI 35.4
--- NOTE | 2023-11-18 17:45 | CTR_ITS ---
PROCEDURE INFORMATION: Exam: CTA Head Without And With Contrast, Arteriography Exam date and time: 11/18/2023 5:51 PM Age: 63 years old Clinical indication: Stroke-like symptoms; Speech disturbance; Additional info: Double vision, slurred speech, weakness (generalized) @ 1300 TECHNIQUE: Imaging protocol: Computed tomographic angiography of the head without and with contrast. Exam focused on the arteries. 3D rendering (Not supervised by radiologist): MIP and/or 3D reconstructed images were created by the technologist. Radiation optimization: All CT scans at this facility use at least one of these dose optimization techniques: automated exposure control; mA and/or kV adjustment per patient size (includes targeted exams where dose is matched to clinical indication); or iterative reconstruction. Contrast material: OMNI 350; Contrast volume: 100 ml; Contrast route: INTRAVENOUS (IV); Other technique: STROKE PROTOCOL was implemented. COMPARISON: No relevant prior studies available. RADIATION DOSE METRICS: Total DLP (mGy-cm): 1071 FINDINGS: ANTERIOR CIRCULATION: Right internal carotid artery: Intracranial segment is patent with no significant stenosis or occlusion. No aneurysm. Right middle cerebral artery: No occlusion or significant stenosis. No aneurysm. Right anterior cerebral artery: No occlusion or significant stenosis. No aneurysm. Left internal carotid artery: Intracranial segment is patent with no significant stenosis. No aneurysm. Left middle cerebral artery: No occlusion or significant stenosis. No aneurysm. Left anterior cerebral artery: No occlusion or significant stenosis. No aneurysm. POSTERIOR CIRCULATION: Right vertebral artery: No occlusion or significant stenosis. No aneurysm. Left vertebral artery: No occlusion or significant stenosis. No aneurysm. Basilar artery: No occlusion or significant stenosis. No aneurysm. Right posterior cerebral artery: No occlusion or significant stenosis. No aneurysm. Left posterior cerebral artery: The left [employer] has origin. HEAD: Brain: No definite mass, mass effect, or midline shift. Cerebral ventricles: Normal. No ventriculomegaly. Bones/joints: Unremarkable. No acute fracture. Paranasal sinuses: Visualized sinuses are normal. No fluid levels. Mastoid air cells: Visualized mastoids are normal. No mastoid effusion. Soft tissues: Unremarkable. PROCEDURE INFORMATION: Exam: CTA Neck Without And With Contrast Exam date and time: 11/18/2023 5:51 PM Age: 63 years old Clinical indication: Stroke-like symptoms; Speech disturbance; Additional info: Double vision, slurred speech, weakness (generalized) @ 1300 TECHNIQUE: Imaging protocol: Computed tomographic angiography of the neck without and with contrast. Exam focused on the cervical segments of the vasculature. 3D rendering (Not supervised by radiologist): MIP and/or 3D reconstructed images were created by the technologist. Radiation optimization: All CT scans at this facility use at least one of these dose optimization techniques: automated exposure control; mA and/or kV adjustment per patient size (includes targeted exams where dose is matched to clinical indication); or iterative reconstruction. Contrast material: OMNI 350; Contrast volume: 100 ml; Contrast route: INTRAVENOUS (IV); COMPARISON: No relevant prior studies available. RADIATION DOSE METRICS: Total DLP (mGy-cm): 1071 FINDINGS: Right common carotid artery: No stenosis. No dissection or occlusion. Right internal carotid artery: Atherosclerotic changes proximal right internal carotid artery with 50% stenosis. Right external carotid artery: No occlusion or stenosis of the origin. Left common carotid artery: No stenosis. No dissection or occlusion. Left internal carotid artery: Atherosclerotic changes proximal left internal carotid artery with no significant stenosis. Left external carotid artery: No occlusion or stenosis of the origin. Right vertebral artery: No stenosis. No dissection or occlusion. Left vertebral artery: No stenosis. No dissection or occlusion. Soft tissues: Normal. No significant soft tissue swelling. Bones/joints: No acute fracture. Dental disease. Lungs: Minimal apical emphysema. CT/CT angio headneck* [id number] IMPRESSION: 1. No large vessel occlusion. 2. Unremarkable CT head. ASSESSMENT: ASPECTS ([place] Stroke Program Early CT Score) is 10. IMPRESSION: 1. No occlusion or significant stenosis. 2. Atherosclerotic changes cause 50% stenosis of the proximal right internal carotid artery. REFERENCES: NASCET CRITERIA. The degree of stenosis in the cervical segment of the internal carotid artery is based on NASCET criteria. Normal is no stenosis. Mild is less than 50% stenosis. Moderate is 50-69% stenosis. Severe is 70% to 99% stenosis. Total occlusion is no detectable patent lumen.
--- NOTE | 2023-11-18 17:46 | ED_ITS ---
HPI - Weakness 2 General: Chief complaint: Weakness Stated complaint: double vison, shaking, stroke symptoms Time Seen by Provider: 11/18/23 17:31 History of Present Illness: 63-year-old male with a history of hyper tension, coronary artery disease with stents, hyperlipidemia, obesity, chronic bilateral knee pain who presents emergency department with multiple new unusual symptoms. Patient reports that he has been having back pain and neck pain since lifting up some tractor farm implements earlier in the week. Therefore he did not sleep very well. He went to bed late last night. When he got up at 1300 today he felt nauseated and thought he was going to vomit. He ended up having a syncopal episode. He reports his helped him to the couch. He seemed to be doing a little bit better and so she went into town at around 2 PM. Patient reports that the bout the time she left, he got even more nauseated and ended up vomiting for the second time in 40 years. He also felt dizzy, generally weak, and he started having double vision. He says everywhere he looked things were doubled like they were just lightly beside each other and 1 was slightly in front of the other. He reports the double vision has resolved a few times but keeps coming back. It started again while I was in speaking with him. reports that he called her while she was in town and asked her to come home because he was not feeling well. She reports when she got home his blood pressure was 163/86 and his oxygen was normal. She reports that he does not have a history of hypoglycemia or diabetes. They did not check his blood sugar. She notes that he was having slurred speech. His gait was unstable and when he tried to get off the couch he stumbled and would have fallen again if the couch did not catch him. He does take aspirin and Plavix for coronary artery disease. He does not take an anticoagulant otherwise. He denies any recent head trauma. No known history of stroke. At the time of presentation he denies any numbness or localized weakness. has not seen any facial asymmetry. His speech returned to normal prior to coming into the emergency department. A few times when he is trying to speak quickly during the history it slightly slurred. His mental status is normal. His fine motor movements are normal and there is no drift in his extremities. The exact time of onset is unclear since the patient had nausea and syncope at around 1 PM but then started having double vision and dizziness around 2 PM. The symptoms seem to be stuttering. 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 Peripheral vascular disease 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 Stent to mid right SFA in 2016 Presence of stent in LAD coronary artery Bilateral tennis elbow Post-traumatic osteoarthritis of knees, bilateral Chronic pain syndrome Surgical History S/P right coronary artery (RCA) stent placement Family History Father CAD (coronary artery disease) Cancer Hyperlipidemia Hypertension Brother Cancer Diabetes Hyperlipidemia Hypertension Sister Clotting disorder Dementia Diabetes Hypertension Mother Diabetes Hypertension Denies family history of Psychiatric illness Chronic kidney disease (CKD) Suicide Anesthesia complication Bleeding disorder Family history of premature coronary artery disease Lung disease Stroke Social History Smoking and tobacco/nicotine status: former use of tobacco/nicotine Second hand smoke exposure: No Alcohol intake: never Substance/Drug Use: never Course 2 Vital Signs: Vital signs: Vital Signs Temperature 97.4 F L 11/18/23 17:23 Pulse Rate 85 11/18/23 17:23 Respiratory Rate 18 11/18/23 18:25 Blood Pressure 180/91 11/18/23 18:25 Pulse Oximetry 97 11/18/23 18:25 Oxygen Delivery Me thod Room Air 11/18/23 18:25 MDM - Weakness Medical Decision Making Dr Forrest, neurologist, has been paged. I spoke with him at 1756. I explained the history and physical exam findings. He is going to come and see patient. At this time, and the NIH is 0. Pt going for stat CT head, CTA head/neck. We are going to withhold TNkase at this time; it seems as though he's had a posterior stroke (probably while he was sleeping). UPDATE: CT head w/o neg CTA head/neck no LVO Atherosclerotic changes cause 50% stenosis proximal R ICA. Dr. Forrest saw the patient and reports that he would not recommend TNKase. Patient probably had posterior stroke sometime while he was asleep last night/this morning. He does recommend admission to the hospital. Permissive hypertension, treat blood pressure if systolic over 185. Continue dual antiplatelet therapy. Discussed with Dr. Hay for admission. Lab Data 11/18/23 17:50 11/18/23 17:50 Radiology Impressions Head/Neck CTA 11/18/23 17:45 IMPRESSION: 1. No large vessel occlusion. 2. Unremarkable CT head. ASSESSMENT: ASPECTS ([place] Stroke Program Early CT Score) is 10. IMPRESSION: 1. No occlusion or significant stenosis. 2. Atherosclerotic changes cause 50% stenosis of the proximal right internal carotid artery. REFERENCES: NASCET CRITERIA. The degree of stenosis in the cervical segment of the internal carotid artery is based on NASCET criteria. Normal is no stenosis. Mild is less than 50% stenosis. Moderate is 50-69% stenosis. Severe is 70% to 99% stenosis. Total occlusion is no detectable patent lumen. Laboratory Results WBC 6.89 10^3/uL (3.29-11.43) 11/18/23 17:50 RBC 6.37 10^6/uL (3.85-5.65) H 11/18/23 17:50 Hgb 18.20 g/dL (11.27-16.99) H 11/18/23 17:50 Hct 53.8 % (37-53) H 11/18/23 17:50 MCV 84.5 fl (82-101) 11/18/23 17:50 MCH 28.6 pg (27-33) 11/18/23 17:50 MCHC 33.8 g/dL (30-55) 11/18/23 17:50 RDW 14.6 % (12.1-15.1) 11/18/23 17:50 Plt Count 211 10^3/cmm (157-399) 11/18/23 17:50 MPV 9.9 fL (7.4-10.4) 11/18/23 17:50 Neut % (Auto) 73.7 % 11/18/23 17:50 Lymph % (Auto) 14.4 % 11/18/23 17:50 [place] % (Auto) 8.6 % 11/18/23 17:50 Eos % (Auto) 2.2 % 11/18/23 17:50 Baso % (Auto) 0.7 % 11/18/23 17:50 Neut # (Auto) 5.08 10^3/uL (1.8-7.7) 11/18/23 17:50 Lymph # (Auto) 1.0 10^3/uL (0.8-4.8) 11/18/23 17:50 [place] # (Auto) 0.6 10^3/uL (0.2-0.9) 11/18/23 17:50 Eos # (Auto) 0.2 10^3/uL (0.0-0.8) 11/18/23 17:50 Baso # (Auto) 0.1 10^3/uL (0.0-0.1) 11/18/23 17:50 Nucleated RBC % (auto) 0 % 11/18/23 17:50 Nucleated RBCs # 0.0 /100WBC 11/18/23 17:50 PT 13.10 SECONDS (12.1-14.9) 11/18/23 17:50 INR 0.96 (0.8-1.2) 11/18/23 17:50 APTT 30.4 SECONDS (23.9-36.7) 11/18/23 17:50 Sodium 134 mmol/L (136-145) L 11/18/23 17:50 Potassium 5.3 mmol/L (3.5-5.1) H 11/18/23 17:50 Chloride 98 mmol/L (98-107) 11/18/23 17:50 Carbon Dioxide 28 mmol/L (22-29) 11/18/23 17:50 Anion Gap 13.3 (5-19) 11/18/23 17:50 BUN 22 mg/dL (8-23) 11/18/23 17:50 Creatinine 1.3 mg/dL (0.7-1.2) H 11/18/23 17:50 GFR Calculation 55.4 mL/min (90-130) L 11/18/23 17:50 Glucose 126 mg/dL (65-115) H 11/18/23 17:50 POC Glucose 108 mg/dL (70-110) 11/18/23 17:48 Calculated Osmolality 283 mOsm/kg (285-295) L 11/18/23 17:50 Calcium 8.8 mg/dL (8.5-10.5) 11/18/23 17:50 Total Bilirubin 1.1 mg/dL (0.15-1.2) 11/18/23 17:50 AST 204 U/L (0-40) H 11/18/23 17:50 ALT 300 U/L (0-41) H 11/18/23 17:50 Alkaline Phosphatase 97 U/L (40-130) 11/18/23 17:50 Troponin T Baseline 11 ng/L (0-15) 11/18/23 17:50 Total Protein 7.4 g/dL (6.6-8.7) 11/18/23 17:50 Albumin 4.0 g/dL (3.5-5.2) 11/18/23 17:50 Globulin 3.4 g/dL (1.3-4.6) 11/18/23 17:50 All radiology interpretation(s) finalized by discharge ED provider radiology interpretation(s): EKG obtained at 1747 EP interpretation, sinus rhythm, rate 86, normal axis, normal intervals, prominent T waves noted in V2 which seems to be isolated to this lead. No concerning ST segment elevations or depressions. No ectopy. Critical Care Time 2 Critical Care Time: Critical Care Time: Yes Total Critical Care Time: 30 Attestation: 30 minutes of critical care time exclusi ve of any procedures. Critical care time included rapid assessment, placement of orders, interpretation of CT imaging, review of radiology reports, discussion with , chart review, discussion with specialty consult, discussion with hospitalist, development of treatment plan, reassessment. Risks included neurologic deterioration related to stroke Discharge Plan Discharge Patient Disposition: Placed in Observation Clinical Impression: Posterior circulation stroke Condition: Stable Prescriptions: No Action furosemide 20 mg tablet 20 mg PO BID Qty: 60 5RF aspirin [Adult Aspirin Regimen] 81 mg tablet,delayed release (DR/EC) 81 mg PO DAILY Qty: 90 3RF nitroglycerin 0.4 mg tablet, sublingual See Rx Instructions .ROUTE .COMPLEX Qty: 25 3RF Dose Instruction: DISSOLVE 1 TABLET UNDER TONGUE EVERY 5 MINUTES NEEDED FOR PAIN Rx Instructions: DISSOLVE 1 TABLET UNDER TONGUE EVERY 5 MINUTES NEEDED FOR PAIN morphine [MS Contin] 100 mg tablet extended release 100 mg PO Q12H 30 Days Qty: 60 0RF temazepam 30 mg capsule 30 - 60 mg PO .AT BEDTIME Qty: 60 3RF Rx Instructions: 340b amlodipine 10 mg tablet 10 mg PO QDAY Qty: 30 6RF ezetimibe 10 mg tablet 10 mg PO QDAY Qty: 30 3RF Movantik 25 mg tablet 25 mg PO QAM Qty: 30 6RF morphine [MS Contin] 100 mg tablet extended release 100 mg PO Q12H 30 Days Qty: 60 0RF lisinopril 40 mg tablet 40 QAM Rx Instructions: TAKE 1 TABLET BY MOUTH EVERY DAY clopidogrel 75 mg tablet 75 mg PO DAILY Qty: 90 1RF Medrol (Judah) 4 mg tablets,dose pack See Rx Instructions .ROUTE .COMPLEX Qty: 21 0RF Rx Instructions: orally per package directions [place] 236-22.74-6.74 -5.86 gram recon soln 240 ml PO Q10M Qty: 4000 0RF Rx Instructions: until fecal effluent is clear Referrals: Daniel Narayanan MD [Primary Care Provider] - Coding Level of Care Code ED Director Motion Picture for Emy Ramírez
--- NOTE | 2023-11-18 17:47 | ECG_ITS ---
[facility] Test Date: 2023-11-18 Pat Name: Rashard Lovelace Department: Room: Gender: Male [employer]: : 1960 Requested By: Darwin Quezada Order Number: [id number] Toño MD: Washington Ba M.D. Measurements Intervals [place] Rate: 86 P: 53 IA: 152 QRS: 43 QRSD: 92 T: 52 QT: 350 QTc: 419 Interpretive Statements SINUS RHYTHM Compared to ECG 06/20/2021 16:20:04 No significant changes Electronically Signed On 11-18-2023 18:56:02 CHEMICAL PROCESS OPERATOR by Washington Ba M.D. [id number]
[2023-11-18 17:52] LABS: Glucose Point of Care 108 mg/dL (70-110)
[2023-11-18 17:55] LABS: Basophils # 0.1 10^3/uL (0.0-0.1); Basophils % 0.7 %; Eosinophils # 0.2 10^3/uL (0.0-0.8); Eosinophils % 2.2 %; Hematocrit 53.8 % (37-53); Lymphocytes % 14.4 %; Mean Corpuscular HGB Conc 33.8 g/dL (30-55); Mean Corpuscular Hemoglobin 28.6 pg (27-33); Mean Corpuscular Volume 84.5 fl (82-101); Mean Platelet Volume 9.9 fL (7.4-10.4); Monocytes # 0.6 10^3/uL (0.2-0.9); Monocytes % 8.6 %; Neutrophils # 5.08 10^3/uL (1.8-7.7); Neutrophils % 73.7 %; Nucleated Red Blood Cells % 0 %; Platelet Count 211 10^3/cmm (157-399); Red Blood Count 6.37 10^6/uL (3.85-5.65); Red Cell Distribution Width 14.6 % (12.1-15.1); White Blood Count 6.89 10^3/uL (3.29-11.43)
[2023-11-18 18:16] LABS: Troponin(5th) Baseline 11 ng/L (0-15)
[2023-11-18 18:18] LABS: Alanine Aminotransferase 300 U/L (0-41); Alkaline Phosphatase 97 U/L (40-130); Anion Gap 13.3 (5-19); Aspartate Amino Transferase 204 U/L (0-40); Blood Urea Nitrogen 22 mg/dL (8-23); Calcium 8.8 mg/dL (8.5-10.5); Carbon Dioxide 28 mmol/L (22-29); Chloride 98 mmol/L (98-107); Globulin 3.4 g/dL (1.3-4.6); Glomerular Filtration Rate 55.4 mL/min (90-130); Glucose 126 mg/dL (65-115); Osmolality Calculated 283 mOsm/kg (285-295); Potassium 5.3 mmol/L (3.5-5.1); Sodium 134 mmol/L (136-145); Total Bilirubin 1.1 mg/dL (0.15-1.2); Total Protein 7.4 g/dL (6.6-8.7)
[2023-11-18 18:20] LABS: INR 0.96 (0.8-1.2)
[2023-11-18 18:21] LABS: Partial Thromboplastin Time 30.4 SECONDS (23.9-36.7)
--- NOTE | 2023-11-18 18:32 | P.CONIM_ITS ---
Providers/Reason For Consult 2 Consulting Physician/Specialty*: Willem Forrest MD neurology and epilepsy Reason for Consult*: Acute care/critical care/code stroke emergency department room #6 Primary Care Provider: Daniel Narayanan MD History of Present Illness History of Present Illness Rashard Lovelace is a 63 year old male with a history of coronary atherosclerotic heart disease status post stent placement x 7, hypertension, chronic back pain, constipation, bilateral knee surgeries, and left arm fracture and rib fractures secondary to a tractor falling on him in the past. According to the patient he was asleep at home on his sofa and woke up around 12 PM on 11/18/2023 and was not feeling well with severe nausea and vomiting. The patient stated that he got up to go get a washcloth from the bathroom but he was experiencing severe dizziness and diplopia and slurred speech and facial in the hallway. The patient's assisted him back to the sofa. The patient's later left to go to town. She stated that while she was away the patient called her to 3 times and stated that he again experienced severe nausea and vomiting with severe objective vertigo and slurred speech and trouble talking. According to the patient the room was shaking and spinning. The patient's stated that she returned home and brought the patient to [facility] emergency room. In the emergency room the patient underwent noncontrast head CT and CT angiogram of the head and neck. CT angiogram of the head and neck performed on 11/18/2023 revealed no large vessel occlusion. Noncontrast head CT was reported to be negative for stroke or any acute findings. NIH score =1 for secondary to slurred speech. Clinical examination revealed mild dysarthria and horizontal diplopia reported on all mcgowan of gaze. There were no nystagmus. Drug allergies: Statins type reaction unknown Current home medications: Norvasc 10 mg p.o. daily Aspirin 81 mg p.o. daily Plavix 75 mg p.o. daily Ezetimibe 10 mg p.o. daily Lasix 20 mg p.o. twice daily Lisinopril 40 mg p.o. every morning Sublingual nitroglycerin 0.4 mg p.o. as directed Temazepam 30 mg p.o. nightly, as needed Past medical history: Coronary atherosclerotic heart disease status post stent placements x 7 (last reported stent placed 2021) Hypertension Chronic low back pain Constipation Left arm fracture and left rib fractures secondary to a tractor falling on him Bilateral knee surgery Habits: None Family history: Remarkable for a father with heart disease and strokes Mother with type 2 diabetes and stroke Brother with type 2 diabetes and stroke 3 sisters with diabetes Review of Systems 2 General: Reports: 10 or more systems reviewed and unremarkable except in HPI and below Medications/Allergies Home Medications Medication Instructions Recorded Confirmed Last Taken Type aspirin 81 mg tablet,delayed 81 mg PO DAILY #90 tabs 10/22/21 08/20/23 02/05/23 05:00 Rx release (Adult Aspirin Regimen) nitroglycerin 0.4 mg sublingual See Rx Instructions .Route 12/30/21 08/20/23 Unknown Rx tablet .COMPLEX #25 tabs morphine 100 mg tablet,extended 100 mg PO Q12H 1 month #60 tabs 04/21/22 08/20/23 02/04/23 15:00 Rx release (MS Contin) temazepam 30 mg capsule 30 - 60 mg (1 - 2 x 30 mg) PO .AT 05/05/22 08/20/23 Unknown Rx BEDTIME #60 caps amlodipine 10 mg tablet 10 mg PO QDAY #30 tabs 05/13/22 08/20/23 02/05/23 05:00 Rx ezetimibe 10 mg tablet 10 mg PO QDAY #30 tabs 07/03/22 08/20/23 02/05/23 05:00 Rx naloxegol 25 mg tablet (Movantik) 25 mg PO QAM #30 tabs 07/03/22 08/20/23 02/05/23 05:00 Rx morphine 100 mg tablet,extended 100 mg PO Q12H 1 month #60 tabs 09/04/22 07/06/23 Unknown Rx release (MS Contin) lisinopril 40 mg tablet 40 QAM 02/05/23 08/20/23 02/05/23 05:00 History 40 clopidogrel 75 mg tablet 75 mg PO DAILY #90 tabs 02/06/23 08/20/23 Unknown Rx furosemide 20 mg tablet 20 mg PO BID #60 tabs 07/06/23 08/20/23 Unknown Rx methylprednisolone 4 mg tablets in See Rx Instructions PO .COMPLEX 11/14/23 Unknown Rx a dose pack (Medrol (Judah)) #21 ea peg 3350-electrolytes 236 240 ml PO Q10M #4,000 mL 11/14/23 Unknown Rx gram-22.74 gram-6.74 gram-5.86 gram solution (Golytely) Allergies Allergy/AdvReac Type Severity Reaction Status Date / Time Kbvnppu-RXT-TxE Reductase Allergy Unknown Unknown Verified 11/14/23 19:04 Inhibitor [Futsaza-Bqy-Sez Reductase Inhibitor] PFSH Acute 2 PFSH: Medical History 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 Peripheral vascular disease 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 Stent to mid right SFA in 2016 Presence of stent in LAD coronary artery Bilateral tennis elbow Post-traumatic osteoarthritis of knees, bilateral Chronic pain syndrome Surgical History S/P right coronary artery (RCA) stent placement Family History Father CAD (coronary artery disease) Cancer Hyperlipidemia Hypertension Brother Cancer Diabetes Hyperlipidemia Hypertension Sister Clotting disorder Dementia Diabetes Hypertension Mother Diabetes Hypertension Denies family history of Psychiatric illness Chronic kidney disease (CKD) Suicide Anesthesia complication Bleeding disorder Family history of premature coronary artery disease Lung disease Stroke Social History Smoking and tobacco/nicotine status: former use of tobacco/nicotine Second hand smoke exposure: No Alcohol intake: never Substance/Drug Use: never Vitals/I&O/Wt Last Vital Signs Temp 97.4 F L 11/18/23 17:23 Pulse 85 11/18/23 17:23 Resp 18 11/18/23 18:25 BP 180/91 11/18/23 18:25 Pulse Ox 97 11/18/23 18:25 O2 Del Method Room Air 11/18/23 18:25 Weight last 48 hrs Weight 240 lb Physical Exam 2 Narrative: NIH score = 1 (secondary to mild dysarthria) Serum glucose 108 The patient is alert and oriented x 3. Speech mildly dysarthric. Speech output is within normal limits. Head atraumatic. Neck supple. Cranial nerves II through XII grossly intact except for complaints of horizontal diplopia in all mcgowan of gaze. There were no obvious nystagmus. Pupils 3 mm reactive to light and accommodation. Visual mcgowan full via confrontation. Motor testing 5/5 bilaterally. There was no drift. Ljnybg-dbmt-uuwhaz and jkar-fykj-zutt maneuvers revealed no ataxia. Sensory examination: Patient reports chronic numbness in his hands and legs. Deep tendon reflexes 1-2+ plantar responses flexor bilaterally. There was no clonus. Throat clear. Lungs clear. Heart regular rhythm and rate extremities were negative for cyanosis Data 11/18/23 17:50 11/18/23 17:50 A&P Assessment and plan (1) Posterior circulation stroke: Impression: 1. Clinical history and examination suggestive of mild posterior circulation stroke. Manifested as horizontal diplopia in all mcgowan of gaze and mild dysarthria NIH score =1 Note: Since the patient reports awakening at 12 PM on 11/18/2023 and presented to the emergency room outside of the intravenous thrombolytic window of 4-1/2 hours, therefore the patient was not a candidate for intravenous thrombolytics and no thrombolytics were administered 2. Coronary atherosclerotic heart disease status post stent placement x 7 3. Constipation Plan: 1. Recommend continuing Plavix 75 mg p.o. every morning with low-dose aspirin 81 mg p.o. every morning with food with lipid-lowering agent per NIH stroke protocol 2. Recommend GI consult for constipation 3. Recommend cardiology follow-up appointment 4. Recommend admitting patient for 24-hour observation with cardiac telemetry monitoring to observe for any underlying cardiac arrhythmia and to monitor for any worsening of posterior circulation stroke symptoms 5. Please schedule patient for follow-up clinic visit in the [facility] neurology clinic 2 weeks after discharge Consult Attestations 2 Medical Necessity Statement: The patient was evaluated by neurology for critical care code stroke emergency department room #6 Coding Level of Care Code 04925 Diagnoses Posterior circulation stroke I63.50
[2023-11-18] MEDS: aspirin 81 mg Chew Tablet 324 MG PO (20:15)
[2023-11-18] MEDS: sodium chloride 0.9% 1,000 ML 999 ML IV (20:17)
[2023-11-18 20:28] LABS: Troponin 5 2HR 11.77 ng/L (0-15); Troponin 5 2HR Delta 0.77 ABS# (0-10)
[2023-11-18 20:30] LABS: Add Urine Culture? No; Add Urine Microscopic? YES; Bilirubin Urine Neg (Negative); Blood Urine Neg (Negative); Glucose Urine UA Norm (Normal); Ketones Urine Negative (Negative); Leukocyte Esterase Urine Negative (Negative); Nitrate Urine Negative (Negative); Protein Urine Trace (Negative); RBC Urine 0-4 /hpf (0-2); Specific Gravity, Urine 1.005 (1.005-1.030); Urine Appearance Clear (CLEAR); Urine Color Yellow (Yellow); Urobilinogen Urine Neg (Negative); pH Urine 7 (5-7)
--- NOTE | 2023-11-18 23:00 | P.HP_ITS ---
Providers/Chief Complaint 2 Admitting Physician: Safia Hay MD Primary Care Provider: Daniel Narayanan MD Chief Complaint: double vison, shaking, stroke symptoms History of Present Illness Rashard Lovelace is a 63 year old male with a history of coronary atherosclerotic heart disease ,hypertension, chronic back pain,in hisusual state of health until 12 pm this afteernoon when he developed severe nausea and vomiting followed by dizziness and diplopia and slurred speech. In the next few hrs he continued to have intermittent nausea and vomiting with dizziness and slurred speech . According to the patient the room was shaking and spinning. He was brought to the ER this evening. the patient underwent noncontrast head CT and CT angiogram of the head and neck. CT angiogram of the head and neck performed on 11/18/2023 revealed no large vessel occlusion.NIH score =1 for secondary to slurred speech. He was evaluated by neurology and was found to have dysarthria and horizontal diplopia reported on all mcgowan of gaze. There were no nystagmus. Review of Systems 2 General: Reports: 10 or more systems reviewed and unremarkable except in HPI and below Const: Denies: fever(s), chills or body aches Eyes: Denies: change in vision, blurry vision or photophobia ENMT: Reports: hoarseness; Denies: throat pain, enlarged tonsils, odynophagia or nasal congestion Card: Denies: chest pain, palpitations, irregular heart rhythm, edema, swelling of feet/ankles, lightheadedness, pre-syncope, dyspnea on exertion or orthopnea Resp: Denies: dyspnea, productive cough, non-productive cough, wheezing, stridor, pain on inspiration, change in phlegm color, hemoptysis or chest congestion GI: Denies: abdominal pain, nausea, vomiting, hematemesis, coffee ground emesis, dysphagia, heartburn, diarrhea, constipation, GI cramping, change in stool character, hematochezia or melena : Denies: flank pain, dysuria, urinary frequency, urinary urgency, urinary hesitancy or hematuria Musc: Denies: neck pain, back pain, extremity pain, joint swelling, joint warmth or deformity Neuro: Denies: headache(s), numbness in extremities, weakness in extremities, sensory changes, difficulty walking, frequent falls, dizziness, vertigo, behavioral changes, Slurred speech present or seizure-like activity Psych: Denies: anxiety, depression, suicidal ideation or homicidal ideation Endo: Denies: polyuria, polydipsia, tired all the time, cold intolerance or hot flashes Dajuan/Lymph: Denies: easy bruising or easy bleeding Medications/Allergies Home Medications Medication Instructions Recorded Confirmed Last Taken Type aspirin 81 mg tablet,delayed 81 mg PO DAILY #90 tabs 10/22/21 08/20/23 02/05/23 05:00 Rx release (Adult Aspirin Regimen) nitroglycerin 0.4 mg sublingual See Rx Instructions .Route 12/30/21 08/20/23 Unknown Rx tablet .COMPLEX #25 tabs morphine 100 mg tablet,extended 100 mg PO Q12H 1 month #60 tabs 04/21/22 08/20/23 02/04/23 15:00 Rx release (MS Contin) temazepam 30 mg capsule 30 - 60 mg (1 - 2 x 30 mg) PO .AT 05/05/22 08/20/23 Unknown Rx BEDTIME #60 caps amlodipine 10 mg tablet 10 mg PO QDAY #30 tabs 05/13/22 08/20/23 02/05/23 05:00 Rx ezetimibe 10 mg tablet 10 mg PO QDAY #30 tabs 07/03/22 08/20/23 02/05/23 05:00 Rx naloxegol 25 mg tablet (Movantik) 25 mg PO QAM #30 tabs 07/03/22 08/20/23 02/05/23 05:00 Rx morphine 100 mg tablet,extended 100 mg PO Q12H 1 month #60 tabs 09/04/22 07/06/23 Unknown Rx release (MS Contin) lisinopril 40 mg tablet 40 QAM 02/05/23 08/20/23 02/05/23 05:00 History 40 clopidogrel 75 mg tablet 75 mg PO DAILY #90 tabs 02/06/23 08/20/23 Unknown Rx furosemide 20 mg tablet 20 mg PO BID #60 tabs 07/06/23 08/20/23 Unknown Rx methylprednisolone 4 mg tablets in See Rx Instructions PO .COMPLEX 11/14/23 Unknown Rx a dose pack (Medrol (Judah)) #21 ea peg 3350-electrolytes 236 240 ml PO Q10M #4,000 mL 11/14/23 Unknown Rx gram-22.74 gram-6.74 gram-5.86 gram solution (Golytely) Allergies Allergy/AdvReac Type Severity Reaction Status Date / Time Mkewimt-RQZ-PzL Reductase Allergy Unknown Unknown Verified 11/14/23 19:04 Inhibitor [Yevthqh-Xpg-Gyd Reductase Inhibitor] PFSH Acute 2 PFSH: Medical History 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 Peripheral vascular disease 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 Stent to mid right SFA in 2016 Presence of stent in LAD coronary artery Bilateral tennis elbow Post-traumatic osteoarthritis of knees, bilateral Chronic pain syndrome Surgical History S/P right coronary artery (RCA) stent placement Family History Father CAD (coronary artery disease) Cancer Hyperlipidemia Hypertension Brother Cancer Diabetes Hyperlipidemia Hypertension Sister Clotting disorder Dementia Diabetes Hypertension Mother Diabetes Hypertension Denies family history of Psychiatric illness Chronic kidney disease (CKD) Suicide Anesthesia complication Bleeding disorder Family history of premature coronary artery disease Lung disease Stroke Social History Smoking and tobacco/nicotine status: former use of tobacco/nicotine Second hand smoke exposure: No Alcohol intake: never Substance/Drug Use: never Vitals/I&O/Wt Last Vital Signs Temp 98.0 F 11/18/23 23:51 Pulse 75 11/18/23 23:51 Resp 18 11/18/23 23:51 BP 168/87 11/18/23 23:51 Pulse Ox 93 11/18/23 23:51 O2 Del Method Room Air 11/18/23 23:51 11/18/23 11/18/23 11/19/23 14:59 22:59 06:59 Intake Total 1000 / 1000 Output Total 250 / 250 Balance 750 / 750 Weight last 48 hrs Weight 108.862 kg Weight 108.862 kg Physical Exam 2 Narrative: General: No acute distress, AO x3 HEENT: PERRLA, pupils bilaterally equal and reactive, pallors not present Chest: Normal vesicular breath sounds, no added sounds, equal good air entry bilaterally CVS: S1-S2 regular, no murmurs, no tachycardia, no gallops, no rubs Abdomen: Soft, nontender, no organomegaly, bowel sounds present Neuro: Speech mildly dysarthric. Motor testing 5/5 bilaterally Data 11/18/23 17:50 11/18/23 17:50 A&P Assessment and plan (1) Posterior circulation stroke: manifesting as dizziness and dysarthria Admit the patient to [facility] for close neuro monitoring he is not a tPA candidate as out of window for treatment Continue telemetry monitoring on the unit to evaluate for underlying arrhythmias. CT head unremarkable CTA head and neck without any major vessel occlusion. Continue aspirin 81 mg daily and Plavix 75 mg daily Intolerance to statins, continue ezetimibe Continue amlodipine 10 mg daily, hold lisinopril due to hyperkalemia at 5.3. Kidney function is at baseline of 1.3 creatinine PT OT speech therapy assessment Appreciate neurology recommendation DVT prophylaxis: Low risk Full code Attestations 2 Medical Necessity Statement*: Less than 2 midnight stay is anticipated at this point in time Coding Level of Care Code Acute Code for Chg Fwd Moderate MDM includes number and complexity of problems actively addressed during encounter, amount and/or complexity of data reviewed/ordered and described risk of complication, morbidity or mortality of management as documented Diagnoses Posterior circulation stroke I63.50
[2023-11-19 00:53] LABS: Chol HDL Ratio 3.59 mg/dL (1.0-5.00); Cholesterol 147 mg/dL (0-200); HDL Cholesterol 41 mg/dL (60-100); LDL Cholesterol Calculated 77 mg/dL (50-129); LDL HDL Ratio 1.88 RATIO (0.00-3.22); Triglycerides 146 mg/dL (0-150)
[2023-11-19 01:07] LABS: Estmated Average Glucose 123; Hemoglobin A1C 5.9 % (4.0-6.0)
[2023-11-19 04:00] VITALS: BP 165/90; PULSE 84; RESP 18; TEMP 36.5; O2SAT 96
[2023-11-19 07:57] VITALS: BP 160/89; PULSE 84; RESP 16; TEMP 36.4; O2SAT 96
--- NOTE | 2023-11-19 09:00 | PC.PHAR ---
11/19/23 MESSAGE LEFT FOR KRISTEN AT 9 AM FOR MEDICATION RECONCILIATION.
--- NOTE | 2023-11-19 10:06 | PM.DCS ---
Discharge Providers Date of Admission: 11/18/23 20:31 Date of Discharge: November 19, 2023 Attending Provider at Admission: Safia Hay MD Attending Provider at Discharge: Safia Hay MD Primary Care Provider: Daniel Narayanan MD Diagnoses at Discharge Discharge Diagnosis (1) Posterior circulation stroke: Status: Acute Reason for Visit Reason for Visit: double vison, shaking, stroke symptoms Hospital Course Hospital Course 63-year-old male who was admitted for management evaluation of posterior circulation stroke, CTA head and neck unremarkable he was not a tPA candidate he was evaluated by the neurologist who recommended overnight observation considering posterior circulation stroke symptoms, within 12 hours patient's symptoms have improved significantly, he is able to walk on his own without any difficulty, patient has been to the bathroom on his own and did well with PT no slurring of speech at all, dizziness and diplopia improved. He is not vomiting. Patient is compliant with his medication aspirin Plavix for his coronary artery disease. He may resume dual antiplatelet therapy along ezetimibe. Permissive hypertension allowed. He may resume lisinopril 40 mg, will add amlodipine 10 mg daily as well. He has grade 3 hypertension. EKG remained sinus. Physical Exam Narrative: Nonfocal neuroexam NIH 0 Slurring of speech improved No diplopia S1, S2 Euvolemic Pleasant cooperative Abdomen soft Discharge Data Studies Completed and Pending Completed Studies During Hospitalization Category Date Time Status CT angio head neck [CT angio headneck* 81722/90116] Cat Scan 11/18/23 17:45 Completed Stat Radiology Impressions Head/Neck CTA 11/18/23 17:45 IMPRESSION: 1. No large vessel occlusion. 2. Unremarkable CT head. ASSESSMENT: ASPECTS (Kasia Stroke Program Early CT Score) is 10. IMPRESSION: 1. No occlusion or significant stenosis. 2. Atherosclerotic changes cause 50% stenosis of the proximal right internal carotid artery. REFERENCES: NASCET CRITERIA. The degree of stenosis in the cervical segment of the internal carotid artery is based on NASCET criteria. Normal is no stenosis. Mild is less than 50% stenosis. Moderate is 50-69% stenosis. Severe is 70% to 99% stenosis. Total occlusion is no detectable patent lumen. Laboratory Results WBC 6.89 10^3/uL (3.29-11.43) 11/18/23 17:50 RBC 6.37 10^6/uL (3.85-5.65) H 11/18/23 17:50 Hgb 18.20 g/dL (11.27-16.99) H 11/18/23 17:50 Hct 53.8 % (37-53) H 11/18/23 17:50 MCV 84.5 fl (82-101) 11/18/23 17:50 MCH 28.6 pg (27-33) 11/18/23 17:50 MCHC 33.8 g/dL (30-55) 11/18/23 17:50 RDW 14.6 % (12.1-15.1) 11/18/23 17:50 Plt Count 211 10^3/cmm (157-399) 11/18/23 17:50 MPV 9.9 fL (7.4-10.4) 11/18/23 17:50 Neut % (Auto) 73.7 % 11/18/23 17:50 Lymph % (Auto) 14.4 % 11/18/23 17:50 Saunders % (Auto) 8.6 % 11/18/23 17:50 Eos % (Auto) 2.2 % 11/18/23 17:50 Baso % (Auto) 0.7 % 11/18/23 17:50 Neut # (Auto) 5.08 10^3/uL (1.8-7.7) 11/18/23 17:50 Lymph # (Auto) 1.0 10^3/uL (0.8-4.8) 11/18/23 17:50 Saunders # (Auto) 0.6 10^3/uL (0.2-0.9) 11/18/23 17:50 Eos # (Auto) 0.2 10^3/uL (0.0-0.8) 11/18/23 17:50 Baso # (Auto) 0.1 10^3/uL (0.0-0.1) 11/18/23 17:50 Nucleated RBC % (auto) 0 % 11/18/23 17:50 Nucleated RBCs # 0.0 /100WBC 11/18/23 17:50 PT 13.10 SECONDS (12.1-14.9) 11/18/23 17:50 INR 0.96 (0.8-1.2) 11/18/23 17:50 APTT 30.4 SECONDS (23.9-36.7) 11/18/23 17:50 Sodium 134 mmol/L (136-145) L 11/18/23 17:50 Potassium 5.3 mmol/L (3.5-5.1) H 11/18/23 17:50 Chloride 98 mmol/L (98-107) 11/18/23 17:50 Carbon Dioxide 28 mmol/L (22-29) 11/18/23 17:50 Anion Gap 13.3 (5-19) 11/18/23 17:50 BUN 22 mg/dL (8-23) 11/18/23 17:50 Creatinine 1.3 mg/dL (0.7-1.2) H 11/18/23 17:50 GFR Calculation 55.4 mL/min (90-130) L 11/18/23 17:50 Glucose 126 mg/dL (65-115) H 11/18/23 17:50 POC Glucose 108 mg/dL (70-110) 11/18/23 17:48 Estimat Average Glucose 123 11/18/23 17:50 Hemoglobin A1c 5.9 % (4.0-6.0) 11/18/23 17:50 Calculated Osmolality 283 mOsm/kg (285-295) L 11/18/23 17:50 Calcium 8.8 mg/dL (8.5-10.5) 11/18/23 17:50 Total Bilirubin 1.1 mg/dL (0.15-1.2) 11/18/23 17:50 AST 204 U/L (0-40) H 11/18/23 17:50 ALT 300 U/L (0-41) H 11/18/23 17:50 Alkaline Phosphatase 97 U/L (40-130) 11/18/23 17:50 Troponin T Baseline 11 ng/L (0-15) 11/18/23 17:50 Troponin T 120 Minute 11.77 ng/L (0-15) 11/18/23 19:50 Delta Troponin T 0.77 ABS# (0-10) 11/18/23 19:50 Troponin T Hi Sens 6Hr 10.80 ng/L (0-15) 11/18/23 23:32 Troponin T Hi Sens 6Hr Delta -0.20 ng/L (0-12) L 11/18/23 23:32 Total Protein 7.4 g/dL (6.6-8.7) 11/18/23 17:50 Albumin 4.0 g/dL (3.5-5.2) 11/18/23 17:50 Globulin 3.4 g/dL (1.3-4.6) 11/18/23 17:50 Triglycerides 146 mg/dL (0-150) 11/18/23 23:32 Cholesterol 147 mg/dL (0-200) 11/18/23 23:32 LDL Cholesterol, Calc 77 mg/dL (50-129) 11/18/23 23: HDL Cholesterol 41 mg/dL (60-100) L 11/18/23 23: LDL/HDL Ratio 1.88 RATIO (0.00-3.22) 11/18/23 23: Cholesterol/HDL Ratio 3.59 mg/dL (1.0-5.00) 11/18/23 23:32 Urine Color Yellow (Yellow) 11/18/23 20:17 Urine Appearance Clear (CLEAR) 11/18/23 20:17 Urine pH 7 (5-7) 11/18/23 20:17 Ur Specific [place] 1.005 (1.005-1.030) 11/18/23 20:17 Urine Protein Trace (Negative) 11/18/23 20:17 Urine Glucose (UA) Norm (Normal) 11/18/23 20:17 Urine Ketones Negative (Negative) 11/18/23 20:17 Urine Blood Neg (Negative) 11/18/23 20:17 Urine Nitrate Negative (Negative) 11/18/23 20:17 Urine Bilirubin Neg (Negative) 11/18/23 20:17 Urine Urobilinogen Neg mg/dL (Negative) 11/18/23 20:17 Ur Leukocyte Esterase Negative (Negative) 11/18/23 20:17 Urine RBC 0-4 /hpf (0-2) H 11/18/23 20:17 Urine WBC None /hpf (0-5) 11/18/23 20:17 Ur Squamous Epith Cells None /hpf (0-5) 11/18/23 20:17 Amorphous Sediment Not Reportable 11/18/23 20:17 Urine Bacteria None /hpf (NONE) 11/18/23 20:17 Vitals Last Vital Signs Temp 97.6 F 11/19/23 07:57 Pulse 84 11/19/23 07:57 Resp 16 11/19/23 07:57 BP 160/89 11/19/23 07:57 Pulse Ox 96 11/19/23 07:57 O2 Del Method Room Air 11/19/23 04:00 Discharge Plan Discharge Patient Disposition: Home Condition: Stable Prescriptions: Continued furosemide 20 mg tablet 20 mg PO BID Qty: 60 5RF nitroglycerin 0.4 mg tablet, sublingual See Rx Instructions .ROUTE .COMPLEX Qty: 25 3RF Dose Instruction: DISSOLVE 1 TABLET UNDER TONGUE EVERY 5 MINUTES NEEDED FOR PAIN Rx Instructions: DISSOLVE 1 TABLET UNDER TONGUE EVERY 5 MINUTES NEEDED FOR PAIN morphine [MS Contin] 100 mg tablet extended release 100 mg PO Q12H 30 Days Qty: 60 0RF temazepam 30 mg capsule 30 - 60 mg PO .AT BEDTIME Qty: 60 3RF Rx Instructions: 340b ezetimibe 10 mg tablet 10 mg PO QDAY Qty: 30 3RF Movantik 25 mg tablet 25 mg PO QAM Qty: 30 6RF morphine [MS Contin] 100 mg tablet extended release 100 mg PO Q12H 30 Days Qty: 60 0RF clopidogrel 75 mg tablet 75 mg PO DAILY Qty: 90 4RF Adult Aspirin Regimen 81 mg tablet,delayed release (DR/EC) 81 mg PO DAILY Qty: 90 4RF amlodipine 10 mg tablet 10 mg PO QDAY Qty: 30 6RF Medrol (Judah) 4 mg tablets,dose pack See Rx Instructions .ROUTE .COMPLEX Qty: 21 0RF Rx Instructions: orally per package directions Golytely 236-22.74-6.74 -5.86 gram recon soln 240 ml PO Q10M Qty: 4000 0RF Rx Instructions: until fecal effluent is clear Changed lisinopril 40 mg tablet 40 mg PO DAILY Qty: 30 4RF Rx Instructions: TAKE 1 TABLET BY MOUTH EVERY DAY Discharge Orders: Discharge Order (Routine); Ordered 11/19/23 Ordered By: Safia Hay Referrals: Daniel Narayanan MD [Primary Care Provider] - 7-10 days Willem Forrest MD [Physician] - 3 weeks Patient Instructions: Opioid Safety Discharge Attestations Time Spent in Discharge Care*: greater than 30 min Quality Metrics Clinical Quality Measures [ No reported AMI, CVA or VTE this stay] Coding Level of Care Code Acute Code for Chg Fwd Diagnoses Posterior circulation stroke I63.50
[2023-11-19] MEDS: ezetimibe 10 mg Tablet PO (10:08)
[2023-11-19] MEDS: aspirin 81 mg EC Tablet PO (10:08)
[2023-11-19] MEDS: amlodipine 10 mg Tablet PO (10:09)
[2023-11-19] MEDS: clopidogrel 75 mg Tablet PO (10:09)
--- NOTE | 2023-11-19 10:34 | PC.CHAP ---
Pastoral Care Encounter/Spiritual Assessment Type of Contact [] Declined sound effects technician visit [] Patient/Family/Request visit [] Outpatient visit [] Follow-up visit [] Physician referral [] Code/Alert [x] Routine visit [] Staff referral [] Actively dying [] Patient sleeping [] Family support [] [] Out of room [] Palliative care [] [] Receiving care in room [] Pre-surgical visit [] Trauma [] Long length of stay [] ICU visit [] Other: Relational/Emotional Strength [] Patient feels connected with others/family/visitors/staff [] Distress [] Loneliness/isolation [] Abandonment Spirituality of Patient [] Person of Kym [] Attends Scientology of their Kym [] Believes in Prayer [] Reads Bible or Sabianism materials [] There are Spiritual issues to be addressed Polisher And Buffer Interventions [] Prayer [] Active listening [] Non-anxious presence [] Spiritual/emotional support [] Crisis/trauma care [] Spiritual counseling [] Bereavement support [] Provided bereavement packet [] Provided Bible/devotional materials [] Provided toy/stuffed animal, coloring book to patient or family member [] Provided Communion [] Anointing/[place] [] Salvation [] Completed spiritual assessment [] Other: Impact on Illness or Injury [] Angry [] Fearful [] Anxious [] Often cries [] Exhaustion [] Unable to work [] Unable to attend scientology [] Unable to walk/stand [] Unable to read [] Unable to drive [] Unable to eat/drink [] Unable to sleep [] Unable to be with family [] Patient intubated [] Other: Summary going home Time spent with patient 5mins
[2023-11-19 11:27] VITALS: BP 160/89; PULSE 84; RESP 16; TEMP 36.4; O2SAT 96
== END 2023-11-19 11:20 | disposition home or self-care (01) ==
LOC: ER 18:36 → MEDSURG 20:31
PROVIDERS: Student in an Organized Health Care Education/Training Program; Admitting Provider Internal Medicine; Emergency Provider Emergency Medicine; PCP Internal Medicine; Visit Provider Internal Medicine
DX: I63.50 Cerebral infarction due to unspecified occlusion or stenosis of unspecified cerebral artery (principal); R29.701 NIHSS score 1; I25.10 Atherosclerotic heart disease of native coronary artery without angina pectoris; Z79.82 Long term (current) use of aspirin; Z79.02 Long term (current) use of antithrombotics/antiplatelets; I11.0 Hypertensive heart disease with heart failure; I50.9 Heart failure, unspecified; Z87.891 Personal history of nicotine dependence; Z95.5 Presence of coronary angioplasty implant and graft; E78.5 Hyperlipidemia, unspecified
CPT/HCPCS: 36415; 36416; 70496; 70498; 80053; 80061; 81001; 82962; 83036; 84484; 85025; 85610; 85730; 92523; 92610; 93005; 96360; 97116; 97161; 99285; G0378; J7030; Q9967

== ENCOUNTER 2023-11-26 12:53 | Outpatient (CLI) | payer MEDICARE, MEDICAID, SELFPAY ==
--- NOTE | 2023-11-26 12:56 | CT_ITS ---
WS: [id number] CT NECK WITH CONTRAST HISTORY: FACIAL SWELLING TECHNIQUE: Contiguous 2 mm axial images are performed through the neck with intravenous contrast. Sag ittal and coronal reformats are also submitted. All CT scans at [facility] use at least one o f these dose optimization techniques: automated exposure control; mA and/or kV adjustment per patient size (includes targeted exams where dose is matched to clinical indication); or iterative reconstruc tion. CONTRAST: CONTRAST: Omnipaque 350; 75 mL IV. DLP: 213.70 mGy.cm COMPARISON: None available. Nasopharynx, oropharynx, hypopharynx and larynx are unremarkable. No soft tissue masses or abnormal e nhancement. Torus tubarius and fossa of Rosenmuller and parapharyngeal fat are normal. No significant lymphadenopathy is identified. Thyroid gland and salivary glands are normally enhancing with no masses. No osseous abnormalities. Visualized portions of the skull base demonstrate no abnormalities. Orbits and globes are within norm al limits. No soft tissue masses. Scattered calcifications in the intracranial carotid arteries. Visualized paranasal sinuses and mastoid air cells are normal. Lung apices are clear. IMPRESSION: Unremarkable neck CT. No lymphadenopathy or neck mass. No edema.
--- NOTE | 2023-11-26 12:56 | CT_ITS ---
WS: [id number] CT chest w con* [id number] HISTORY: FACIAL SWELLING TECHNIQUE: Axial imaging performed through the thorax. Coronal and sagittal reformats are submitted. All CT scans at [facility] use at least one of these dose optimization techniques: automated exposure control; mA and/or kV adjustment per patient size (includes targeted exams where dose is mat ched to clinical indication); or iterative reconstruction. CONTRAST: Omnipaque 350; 100 mL IV. DLP: 631.73 mGy.cm COMPARISON: None available. Lungs and central airway: Mild paracentral emphysema. Spiculated nodule in the RIGHT upper lobe abuts the minor fissure. Nodule measures 1.3 x 1.4 cm. No additional nodule or mass. No pneumonia. Normal size heart. Coronary artery calcifications and stents are noted. No pericardial or pleural effusion. No adenopathy. Small hiatal hernia. Pleura: Normal. No pleural effusion. Heart and pericardium: Normal size heart with no pericardial effusion. Mediastinum and daria: No mediastinum or hilar adenopathy. Vessels: Normal size aortic and pulmonary artery. No coronary artery calcifications. Chest wall and lower neck: No soft tissue masses. Upper abdomen: Normal. Osseous structures: Increase in thoracic kyphosis. No thoracic spine fracture. IMPRESSION: 1. Spiculated nodule RIGHT upper lobe abuts the fissure. Nodule measures 1.3 x 1.4 cm. Indeterminate solid pulmonary nodule measuring 13 mm. In a patient of unknown risk level with a solid nodule >8 mm, consider PET/CT or tissue sampling, vs. CT at 3 months. 2. Mild panlobular emphysema. 3. Coronary artery stents and coronary artery calcifications.
[2023-11-26] MEDS: iohexol 350 mg/mL 500 mL Btl (per mL) IV ×2 (13:16→13:21)
== END 2023-11-26 12:54 | disposition home or self-care (01) ==
LOC: RAD 12:53
PROVIDERS: PCP Internal Medicine; Visit Provider Internal Medicine
DX: R22.0 Localized swelling, mass and lump, head (principal); R91.1 Solitary pulmonary nodule; J43.1 Panlobular emphysema; I25.10 Atherosclerotic heart disease of native coronary artery without angina pectoris; Z95.5 Presence of coronary angioplasty implant and graft
CPT/HCPCS: 70491; 71260; Q9967

== ENCOUNTER → 2023-12-15 15:14 | Outpatient (BNVA) | payer MEDICARE, MEDICAID, SELFPAY | PROVIDERS: PCP Internal Medicine; Visit Provider Internal Medicine | DX: I83.893 Varicose veins of bilateral lower extremities with other complications (principal); I70.201 Unspecified atherosclerosis of native arteries of extremities, right leg; I25.10 Atherosclerotic heart disease of native coronary artery without angina pectoris; Z95.5 Presence of coronary angioplasty implant and graft; E78.5 Hyperlipidemia, unspecified; I10 Essential (primary) hypertension; Z87.891 Personal history of nicotine dependence | CPT/HCPCS: 99214 ==

== ENCOUNTER → 2024-06-21 11:51 | Outpatient (BNVA) | payer MEDICARE, MEDICAID, SELFPAY | PROVIDERS: PCP Internal Medicine; Visit Provider Internal Medicine | DX: I83.893 Varicose veins of bilateral lower extremities with other complications (principal); Z95.5 Presence of coronary angioplasty implant and graft; I25.10 Atherosclerotic heart disease of native coronary artery without angina pectoris; E78.5 Hyperlipidemia, unspecified; I10 Essential (primary) hypertension; I73.9 Peripheral vascular disease, unspecified | CPT/HCPCS: 99214 ==

== ENCOUNTER → 2024-09-30 11:59 | Outpatient (BNVA) | payer MEDICARE, MEDICAID, SELFPAY | PROVIDERS: PCP Internal Medicine; Visit Provider Nurse Practitioner Family | DX: E78.5 Hyperlipidemia, unspecified (principal) | CPT/HCPCS: 36415; 80061; 99214 ==

== ENCOUNTER → 2025-05-25 10:59 | Outpatient (BNVA) | payer OTHER, MEDICAID, SELFPAY | PROVIDERS: PCP Internal Medicine; Visit Provider Nurse Practitioner Family | DX: I25.110 Atherosclerotic heart disease of native coronary artery with unstable angina pectoris (principal); I83.893 Varicose veins of bilateral lower extremities with other complications; E78.5 Hyperlipidemia, unspecified; I10 Essential (primary) hypertension; I73.9 Peripheral vascular disease, unspecified; R07.9 Chest pain, unspecified; Z79.02 Long term (current) use of antithrombotics/antiplatelets; Z79.82 Long term (current) use of aspirin; Z95.5 Presence of coronary angioplasty implant and graft; Z87.891 Personal history of nicotine dependence; I25.10 Atherosclerotic heart disease of native coronary artery without angina pectoris | CPT/HCPCS: 93005; 99214 ==

== ENCOUNTER 2025-05-30 15:10 | Outpatient (CLI) | payer OTHER, MEDICAID, SELFPAY ==
[2025-05-30 16:03] LABS: Hematocrit 47.0 % (37-53); Hemoglobin 15.80 g/dL (11.27-16.99); Mean Corpuscular HGB Conc 33.6 g/dL (30-55); Mean Corpuscular Hemoglobin 29.2 pg (27-33); Mean Corpuscular Volume 86.9 fl (82-101); Nucleated Red Blood Cells % 0 %; Platelet Count 209 10^3/cmm (157-399); Red Blood Count 5.41 10^6/uL (3.85-5.65); White Blood Count 5.93 10^3/uL (3.29-11.43)
[2025-05-30 16:24] LABS: Anion Gap 16.5 (5-19); Blood Urea Nitrogen 19 mg/dL (8-23); Calcium 8.8 mg/dL (8.5-10.5); Carbon Dioxide 23 mmol/L (22-29); Chloride 101 mmol/L (98-107); Glucose 118 mg/dL (65-115); Osmolality Calculated 285 mOsm/kg (285-295); Potassium 4.5 mmol/L (3.5-5.1); Sodium 136 mmol/L (136-145)
[2025-05-30 16:55] LABS: INR 0.94 (0.8-1.2); Prothrombin Time 13.20 SECONDS (12.1-14.9)
[2025-05-30 16:56] LABS: Partial Thromboplastin Time 28.2 SECONDS (23.9-36.7)
== END 2025-05-30 15:11 | disposition home or self-care (01) ==
PROVIDERS: Nurse Practitioner Family; PCP Internal Medicine; Visit Provider Internal Medicine
DX: Z95.5 Presence of coronary angioplasty implant and graft (principal); I25.10 Atherosclerotic heart disease of native coronary artery without angina pectoris; R06.02 Shortness of breath; I10 Essential (primary) hypertension
CPT/HCPCS: 36415; 80048; 85025; 85610; 85730

== ENCOUNTER 2025-06-08 06:03 | Outpatient (CLI) | payer OTHER, MEDICAID, SELFPAY ==
[2025-06-08] VITALS (17 sets, daily range): BP systolic 128–160; BP diastolic 72–96; PULSE 60–81; RESP 16–20; TEMP 36.7; O2SAT 95–99; BMI 36.4
--- NOTE | 2025-06-08 06:00 | XACV_ITS ---
Exam Room: 2 Ht: 175 cm Wt: 112 kg BSA: 2.38 m2 Gender: Male : 1960 Any Known Allergies: Other Exam Priority: Routine Procedure(s): Procedure Description: Diagnostic procedure Procedure Description: Left Heart Catheterization Procedure Description: Left ventriculography Procedure Description: Coronary Angiography Diagnostic Cath Status: Elective Diagnostic Findings * INDICATION: Worsening angina. * Left Main has no significant disease. * Circumflex has patent prior stent. * Mid Left Anterior Descending: severe 80-90% in-stent restenosis, SAUL: 3 flow. * Proximal Right Coronary Artery to Mid Right Coronary Artery: long stent with severe diffuse instent restenosis 90-95% stenosis, SAUL: 3 flow. * First Obtuse Marginal Branch is small sized artery and has severe 80% ostial stenosis, SAUL: 3 flow. * Proximal Left Anterior Descending: obstructive 70% stenosis, SAUL: 3 flow. * Coronary angiography shows right dominance. Conclusions 1. Severe multivessel coronary artery disease with severe, diffuse in-stent restenosis of old RCA and LAD stents. 2. Normal left ventricular systolic function. Ejection fraction of 50%. Recommendations * We will refer patient for CABG evaluation. Interventional RX Recommendation: CABG Diagnostic RX Recommendation: CABG Anticoagulation: Heparin Ventriculography Ejection Fraction: 50.0 % Pressures Phase:Rest AO : 110 / 83 ( 97 ) @ 9:26:00 AM 146 / 76 ( 103 ) @ 9:38:00 AM 146 / 75 ( 103 ) @ 9:38:00 AM LV : 145 / 0 / 19 @ 9:37:00 AM 137 / -1 / 22 @ 9:38:00 AM 136 / -3 / 18 @ 9:38:00 AM Valves Phase:DefaultPhase AV : 0.0 @ 8:44:17 AM AV Mean Gradient: 0.0 @ 8:44:17 AM Clinical Evaluation EBL: 5mL-10mL Procedural Details Procedure Consent Obtained. Pre-Procedure Time Out. Identified patient by full name and date of as verbalized by the patient/guarantor. Does the consent match the physician's order: Yes. Accurate & Complete Informed Consent: Yes. Inpatient/Outpatient History & Physical on Chart: Yes. If H&P is completed, is and addenduem needed: No; If yes, is the addendum complete: N/A. Visualize and Verify Site with Patient/Guarantor: N/A. Relevant Radiology Images available: Yes. Pre-op teaching completed and patient verbalized understanding. The risks, benefits, and alternatives of sedation and/or procedure were discussed by physician. The patient agrees to continue. Procedure started. [facility] Clinical Fraility Score: 3: Managing Well. Electronic Organ Mechanic Indications: Worsening Angina. Chest Pain Symptom Assessment: Typical Angina Symptoms. Correct patient, site and procedure confirmed by cath team. Current diagnosis: Chest Pain. PERRLA. Strong, equal hand spanish literature professor bilaterally. Lungs clear x 5 lobes. IV Site on Arrival: 20 gauge in the left anticubital. IV Fluids: 0.9% NaCl at KVO. 0 mL infused prior to chemical processing laborer. Pre Procedural Pulses: bilateral dorsalis pedis was Absent. Pre Procedural Pulses: bilateral posterior tibial was Absent. Pre Procedural Pulses: bilateral radial was 3+. Oxygen started at 2liters/min via nasal canula. right groin was prepped with chloroprep then draped in the usual sterile fashion. right radial was prepped with chloroprep then draped in the usual sterile fashion. Baseline sample Acquired. HR: 74 BPM. Physician arrived. Physician scrubbed in. Immediate Pre-Procedure Time Out. Correct Patient: Yes; Correct Procedure: Yes; Correct Site: Yes; Correct Patient Position: Yes; Correct Supplies: Yes; Dried Flammable Prep: Yes; Blood Products Available: N/A;. Lidocaine 1% infiltrated to the right radial. Arterial access obtained. A 5 irish TIG catheter in over wire. Multiple views taken of left coronary artery. Catheter redirected to the RCA. Multiple views taken of right coronary artery. Catheter removed over the exchange wire. A 5 irish Angled Pig catheter in over wire. EDP Sample taken: LV 145/0,19; HR: 69 BPM; SpO2: 97%. LV gram performed in FUNEZ @ 10 mL/second for a total of 30 mL. EDP Sample taken: LV 137/-2,22; HR: 69 BPM; SpO2: 100%. Pullback taken: LV 136/-4,18; AO 146/76(103); Mean: 0mmHg, Peak to Peak: 0mmHg, SEP: 7sec/min; HR: 69 BPM; SpO2: 100%. Catheter removed over the exchange wire. A TR Band was successful obtaining hemostatsis at the Right Radial artery insertion site. Vital chart was stopped. TR band placed. Hemostasis obtained. Post Procedure: Pulses reassessed and unchanged. PERRLA. Strong, equal hand spanish literature professor bilaterally. No VTE prophylaxis required. Medication's Wasted: Lidocaine 1% = 18 mL. Medication's Wasted: Nitro = 49.8 mcg. Medication's Wasted: Other = Fentanyl 50 mcg. Total IV fluids: 40 mL. Post-op diagnosis: CAD. Complications: None. Estimated blood loss: 5mL-10mL. Responsiveness - Normal response to verbal stimuli; alert and oriented, PERRLA. Airway - Unaffected, no intervention required; spontaneous ventilation. Circulation: W/N/L, pulses unchanged. Nausea/Vomiting: No. Procedure completed. Patient transferred by stretcher to CPRU. Access Site Site: Right Radial artery Sheath Size: 6 Fr Hemostasis Method: TR Band Hemostasis Success: Successful Procedure Medications Start: 8:15 AM Stop: 8:15 AM Medication: Versed Amount: 1 mg Route: I.V. Start: 8:17 AM Stop: 8:17 AM Medication: Fentanyl Amount: 50 mcg Route: I.V. Start: 8:23 AM Stop: 8:23 AM Medication: Nitrogylcerin Amount: 200 mcg Route: I.A. Start: 8:25 AM Stop: 8:25 AM Medication: Heparin Amount: 5000 units Route: I.V. Start: 8:25 AM Stop: 8:25 AM Medication: Versed Amount: 1 mg Route: I.V. I, the attending physician, have reviewed and verified all procedure medications. Yes, all medications given per verbal order History/Risk Factors Hypertension: Yes Dyslipidemia: Yes Peripheral Arterial Disease (PAD): Yes Myocardial Infarction (OK): No Obesity: Yes Renal Disease: No Tobacco Use: Former Prior Interventions PCI: Yes CABG: No Valve Surgery: No Date of PCI: 06/20/2021 Report Signatures Finalized by Washington Ba MD on 06/08/2025 09:01 AM
[2025-06-08 06:48] LABS: Anion Gap 15.0 (5-19); Blood Urea Nitrogen 16 mg/dL (8-23); Calcium 8.4 mg/dL (8.5-10.5); Carbon Dioxide 23 mmol/L (22-29); Chloride 104 mmol/L (98-107); Creatinine Clr Calc Pharmacy 68.0357; Glucose 112 mg/dL (65-115); Osmolality Calculated 288 mOsm/kg (285-295); Potassium 4.0 mmol/L (3.5-5.1); Sodium 138 mmol/L (136-145)
--- NOTE | 2025-06-08 08:14 | W.PM.OPSUD ---
Surgery/Procedure H&P Update DATE OF PROCEDURE: June 08, 2025 DATE H&P PERFORMED: 05/25/25 H&P UPDATE INFORMATION: I have reviewed H&P completed within last 30 days, I have examined patient prior to procedure and No changes to prior documentation PREOP DIAGNOSIS: Worsening angina PRIMARY INDICATION FOR PROCEDURE: Worsening angina PLANNED PROCEDURE: Operation Date: 06/08/25 08:30 Proposed Procedures p Cardiac Catheterization - [facility] w/wo LV & Coros(Left) - Washington Ba M.D Possible percutaneous coronary intervention PATIENT REASSESSED PRIOR TO SEDATION, WITH NO CHANGE NOTED: Yes PHYSICAL EXAM: alert, oriented x 3, clear to auscultation bilaterally and regular rate & rhythm AIRWAY EVAL/ANESTHESIA PLAN: normal airway, ASA III, Local Anesthesia, Risks, benefits & alternatives of sedation and/or procedure discussed and Patient agrees to continue as planned ADDITIONAL INFORMATION: Moderate sedation
== END 2025-06-08 12:34 | disposition home or self-care (01) ==
PROVIDERS: PCP Internal Medicine; Visit Provider Internal Medicine
DX: T82.855A Stenosis of coronary artery stent, initial encounter (principal); I25.119 Atherosclerotic heart disease of native coronary artery with unspecified angina pectoris; I10 Essential (primary) hypertension; E78.5 Hyperlipidemia, unspecified; E66.9 Obesity, unspecified; Z68.36 Body mass index [BMI] 36.0-36.9, adult; Z87.891 Personal history of nicotine dependence; Z79.82 Long term (current) use of aspirin; Z95.5 Presence of coronary angioplasty implant and graft; Z86.73 Personal history of transient ischemic attack (TIA), and cerebral infarction without residual deficits; I73.9 Peripheral vascular disease, unspecified; Z82.49 Family history of ischemic heart disease and other diseases of the circulatory system
CPT/HCPCS: 36415; 80048; 93458; 96360; 96361; 99152; 99153; C1769; C1887; C1894; J1644; J2250; J3010; J3490; J7030; J9999; Q0163; Q9967

== ENCOUNTER 2025-06-09 10:37 | Outpatient (CLI) | payer OTHER, MEDICAID, SELFPAY ==
--- NOTE | 2025-06-09 10:41 | CT_ITS ---
WS: [id number] CT chest w con* [id number] HISTORY: ABNORMAL CT CHEST TECHNIQUE: Axial imaging performed through the thorax. Coronal and sagittal reformats are submitted. All CT scans at [facility] use at least one of these dose optimization techniques: automated exposure control; mA and/or kV adjustment per patient size (includes targeted exams where dose is matched to clinical indication); or iterative reconstruction. CONTRAST: Omnipaque 350; 100 mL IV. DLP: 677.91 mGy.cm COMPARISON: 11/26/2023 Lungs and central airway: Reidentified is a slightly spiculated nodule in the RIGHT upper lobe measuring 13 x 9 x 9 mm. Nodule has not increased in size. There is a small pleural tag and adjacent groundglass attenuation. No additional nodule or mass. No pneumonia Pleura: Normal. No pleural effusion. Heart and pericardium: Normal size heart with no pericardial effusion. Extensive coronary artery calcifications with coronary artery stents. Mediastinum and daria: No mediastinum or hilar adenopathy. Vessels: Mild atherosclerosis aorta. No aneurysm. Normal size pulmonary artery. Chest wall and lower neck: No soft tissue masses. Upper abdomen: Normal. Osseous structures: Increase in thoracic kyphosis. No destructive bone lesions. CT/CT chest w con* [id number] IMPRESSION: 1. No change spiculated nodule RIGHT upper lobe measuring 13 x 9 x 9 mm. Stabl e since 11/26/2023. Consider continued short-term follow-up to document long-te rm stability. Recommend manage follow-up chest CT in 6 months. 2. No mediastinal or hilar adenopathy. 3. Emphysema.
== END 2025-06-09 10:38 | disposition home or self-care (01) ==
LOC: RAD 10:37
PROVIDERS: PCP Internal Medicine; Visit Provider Internal Medicine
DX: R91.1 Solitary pulmonary nodule (principal); J43.9 Emphysema, unspecified
CPT/HCPCS: 71260

== ENCOUNTER 2025-07-04 15:52 | Outpatient (CLI) | payer OTHER, MEDICAID, SELFPAY ==
[2025-07-04 16:48] LABS: Hematocrit 34.2 % (37-53); Hemoglobin 11.00 g/dL (11.27-16.99); Mean Corpuscular HGB Conc 32.2 g/dL (30-55); Mean Corpuscular Hemoglobin 29.4 pg (27-33); Mean Corpuscular Volume 91.4 fl (82-101); Nucleated Red Blood Cells % 0 %; Platelet Count 477 10^3/cmm (157-399); Red Blood Count 3.74 10^6/uL (3.85-5.65); White Blood Count 7.69 10^3/uL (3.29-11.43)
[2025-07-04 17:57] LABS: Anion Gap 13.3 (5-19); Blood Urea Nitrogen 10 mg/dL (8-23); Calcium 8.4 mg/dL (8.5-10.5); Carbon Dioxide 26 mmol/L (22-29); Chloride 103 mmol/L (98-107); Glucose 125 mg/dL (65-115); Osmolality Calculated 285 mOsm/kg (285-295); Potassium 5.3 mmol/L (3.5-5.1); Sodium 137 mmol/L (136-145)
== END 2025-07-04 15:53 | disposition home or self-care (01) ==
PROVIDERS: PCP Internal Medicine; Visit Provider Surgery
DX: I25.10 Atherosclerotic heart disease of native coronary artery without angina pectoris (principal); Z95.1 Presence of aortocoronary bypass graft
CPT/HCPCS: 36415; 80048; 85025

== ENCOUNTER 2025-07-18 15:59 | Outpatient (CLI) | payer OTHER, MEDICAID, SELFPAY ==
[2025-07-18 16:48] LABS: Hematocrit 39.1 % (37-53); Hemoglobin 12.70 g/dL (11.27-16.99); Mean Corpuscular HGB Conc 32.5 g/dL (30-55); Mean Corpuscular Hemoglobin 28.0 pg (27-33); Mean Corpuscular Volume 86.3 fl (82-101); Nucleated Red Blood Cells % 0 %; Platelet Count 316 10^3/cmm (157-399); Red Blood Count 4.53 10^6/uL (3.85-5.65); White Blood Count 6.44 10^3/uL (3.29-11.43)
[2025-07-18 18:35] LABS: Anion Gap 15.4 (5-19); Blood Urea Nitrogen 15 mg/dL (8-23); Calcium 8.9 mg/dL (8.5-10.5); Carbon Dioxide 23 mmol/L (22-29); Chloride 106 mmol/L (98-107); Glucose 99 mg/dL (65-115); Osmolality Calculated 291 mOsm/kg (285-295); Potassium 4.4 mmol/L (3.5-5.1); Sodium 140 mmol/L (136-145)
== END 2025-07-18 16:00 | disposition home or self-care (01) ==
PROVIDERS: PCP Internal Medicine; Visit Provider Surgery
DX: I25.10 Atherosclerotic heart disease of native coronary artery without angina pectoris (principal); Z95.1 Presence of aortocoronary bypass graft
CPT/HCPCS: 36415; 80048; 85025

== ENCOUNTER 2025-09-26 15:08 | Outpatient (CLI) | payer OTHER, MEDICAID, SELFPAY ==
[2025-09-26 17:27] LABS: Anion Gap 10.7 (5-19); Blood Urea Nitrogen 15 mg/dL (8-23); Calcium 8.9 mg/dL (8.5-10.5); Carbon Dioxide 26 mmol/L (22-29); Chloride 103 mmol/L (98-107); Cholesterol 152 mg/dL (0-200); Glucose 116 mg/dL (65-115); HDL Cholesterol 35 mg/dL (60-100); Magnesium 2.3 mg/dL (1.7-2.3); Osmolality Calculated 282 mOsm/kg (285-295); Potassium 4.7 mmol/L (3.5-5.1); Sodium 135 mmol/L (136-145); Triglycerides 119 mg/dL (0-150)
== END 2025-09-26 15:09 | disposition home or self-care (01) ==
LOC: LAB 15:11
PROVIDERS: PCP Internal Medicine
DX: I25.118 Atherosclerotic heart disease of native coronary artery with other forms of angina pectoris (principal); Z95.1 Presence of aortocoronary bypass graft
CPT/HCPCS: 36415; 80048; 80061; 83735

== ENCOUNTER → 2025-10-24 08:58 | Outpatient (BNVA) | payer OTHER, MEDICAID, SELFPAY | PROVIDERS: PCP Internal Medicine; Visit Provider Nurse Practitioner Family | DX: I25.10 Atherosclerotic heart disease of native coronary artery without angina pectoris (principal); I12.9 Hypertensive chronic kidney disease with stage 1 through stage 4 chronic kidney disease, or unspecified chronic kidney disease; N18.9 Chronic kidney disease, unspecified; J90 Pleural effusion, not elsewhere classified; Z95.1 Presence of aortocoronary bypass graft; R06.02 Shortness of breath; E78.5 Hyperlipidemia, unspecified; Z87.891 Personal history of nicotine dependence | CPT/HCPCS: 99214 ==